=== PATIENT | female | born 1930 | race African-American/Black ===

== ENCOUNTER 2018-05-15 17:55 | Inpatient (IN) | payer MEDICARE, OTHER ==
[2018-05-15] MEDS ORDERED: PANTOPRAZOLE 40 MG/10 ML VIAL IVP STA (18:26)
[2018-05-15] MEDS ORDERED: SODIUM CHLORIDE 0.9% 1,000 ML IV STA (18:26)
--- NOTE | 2018-05-15 19:38 | CT ---
EXAMINATION TYPE: CT brain wo con DATE OF EXAM: 05/15/2018 COMPARISON: 02/19/2015 HISTORY: 87-year-old female with pain, confusion, altered mental status TECHNIQUE: Examination was done in axial plane without intravenous contrast. Coronal and sagittal r econstructions performed. CT DLP: 947.3 mGycm Automated exposure control for dose reduction was used. FINDINGS: There is no evidence of acute intracranial hemorrhage, acute ischemic changes, mass, mass-effect, or extra-axial fluid collection. There is no effacement of cerebral sulci or basal subarachnoid cister ns. There is no midline shift. Mckeon-white matter distinction is preserved. Similar moderate to advanced supratentorial volume loss. There is nemu-[id number] hydrocephalus, sim ilar to prior exam likely in part due to central cerebral atrophy. Mild mucosal thickening right ethmoid air cells. Mastoid air cells well pneumatized. Orbits and globe s are intact. IMPRESSION: 1. Stable cnek-[id number] ventriculomegaly likely ex vacuo enlargement from the degree of cerebral a trophy. Correlate to exclude a component of NPH. 2. No acute intracranial abnormality seen.
--- NOTE | 2018-05-15 19:47 | XR ---
EXAMINATION TYPE: XR chest 2V DATE OF EXAM: 05/15/2018 COMPARISON: 05/17/2014 HISTORY: 87-year-old female with pain TECHNIQUE: AP and lateral views FINDINGS: The heart is normal size. Aorta and pulmonary vasculature within normal limits. Stable mild diffuse i nterstitial prominence. No consolidation or pleural effusion. IMPRESSION: Chronic changes without acute cardiopulmonary process.
[2018-05-15 19:55] LABS: Calcium 11.2 mg/dL (8.4-10.2); Potassium 4.2 mmol/L (3.5-5.1); Total Bilirubin 0.6 mg/dL (0.2-1.3); Total Protein 7.1 g/dL (6.3-8.2)
[2018-05-15 19:56] LABS: HCT 42.3 % (34.0-46.0); HGB 13.5 gm/dL (11.4-16.0); Hypochromasia Slight; MCHC 31.9 g/dL (31.0-37.0); Mean Platelet Volume 11.5; Platelet Count 445 k/uL (150-450); RDW 15.4 % (11.5-15.5)
[2018-05-15 20:00] LABS: WBC 38.5 k/uL (3.8-10.6)
[2018-05-15] MEDS ORDERED: PIPERACILLIN-TAZOBACTAM 3.375 GM in DEXTROSE/WATER 1 50ML.BAG IVPB STA (20:00)
[2018-05-15 20:07] LABS: Creatine Kinase MB 1.9 ng/mL (0.0-2.4); Troponin I 0.075 ng/mL (0.000-0.034)
[2018-05-15 20:14] LABS: Lymphocytes # (M) 2.31 k/uL (1.0-4.8); Monocytes # (M) 3.08 k/uL (0-1.0); Neutrophils % (M) 87 %; Nucleated Red Blood Cells 0 /100 WBC (0-0); Total Cells Counted 200
--- NOTE | 2018-05-15 20:24 | ED ---
General Adult HPI - General Chief complaint: GI Bleed Stated complaint: GI Bleed Time Seen by Provider: 05/15/18 18:00 Source: EMS Mode of arrival: EMS - History of Present Illness Initial comments: 77 years O female comes in the [facility] with her 2 sons, both of her son said that has not been feeling well for about 40 week now home they said they noticed coffee-ground emesis this morning and now she has been sleeping more and there are times when she wakes up and talk to them but they noticed a clear change in mentation she'll history of strokes she has not walked for about a year and a half now prior to that she was used to walk with a walker review of system is through the family and initially patient was unresponsive to the sternal rub but later she woke up she answered my questions and they seemed appropriate and she fell asleep while talking to me - Related Data Home Medications Medication Instructions Recorded Confirmed Atenolol [Tenormin] 50 mg PO DAILY 05/17/14 05/15/18 Insulin Aspart [NovoLOG Flexpen] 6 unit SQ AC-BRKFST 06/18/14 05/15/18 Aspirin 81 mg PO DAILY 08/21/14 05/15/18 Docusate [Colace] 100 mg PO DAILY 08/21/14 05/15/18 Insulin Aspart [Novolog Flexpen] 8 unit SQ AC-BID 08/21/14 05/15/18 Atorvastatin [Lipitor] 40 mg PO HS 08/22/14 05/15/18 Cholecalciferol [Vitamin D3] 1,000 unit PO DAILY@1200 08/22/14 05/15/18 Gabapentin [Neurontin] 100 mg PO HS 08/22/14 05/15/18 Insulin Detemir [Levemir Flexpen] 30 unit SQ HS 08/22/14 05/15/18 buPROPion HCL [Wellbutrin] 75 mg PO DAILY 02/19/15 05/15/18 Allopurinol [Zyloprim] 100 mg PO DAILY 05/15/18 05/15/18 Memantine HCl [Namenda] 5 mg PO BID 05/15/18 05/15/18 Mirtazapine [Remeron] 15 mg PO HS 05/15/18 05/15/18 Potassium Chloride [Klor-Con 10] 10 meq PO DAILY 05/15/18 05/15/18 Sodium Bicarbonate Tab 650 mg PO DAILY 05/15/18 05/15/18 Allergies Allergy/AdvReac Type Severity Reaction Status Date / Time metformin Allergy Unknown Verified 02/19/15 22:33 Review of Systems ROS Statement: Those systems with pertinent positive or pertinent negative responses have been documented in the HPI. ROS Other: All systems not noted in ROS Statement are negative. Past Medical History Past Medical History: CVA/TIA, Diabetes Mellitus, GERD/Reflux, Hyperlipidemia, Hypertension Additional Past Medical History / Comment(s): vomiting after meals, slight memory loss-signs own consents, wheelchair, History of Any Multi-Drug Resistant Organisms: None Reported Past Surgical History: Unable to Obtain, Coronary Bypass/CABG Additional Past Surgical History / Comment(s): no other surgical hx at [facility] Past Anesthesia/Blood Transfusion Reactions: Unable to Obtain Additional Past Anesthesia/Blood Transfusion Reaction / Comment(s): no hx at [facility] Past Psychological History: Depression Smoking Status: Never smoker Past Alcohol Use History: None Reported Past Drug Use History: None Reported General Exam - General Exam Comments Initial Comments: General: The patient is unresponsive on arrival to the sternal rub than 10 minutes later she woke up and she had a meaningful conversation and then she fell asleep while talking to me family said she is a DO NOT RESUSCITATE Skin: Skin is warm and dry and no rashes or lesions are noted. Eye: Pupils are equal, round and reactive to light, extra-ocular movements are intact; there is normal conjunctiva bilaterally. Ears, nose, mouth and throat: There are moist mucous membranes and no oral lesions. Neck: The neck is supple, there is no tenderness or JVD. Cardiovascular: There is a regular rate and rhythm. No murmur, rub or gallop is appreciated. Respiratory: To auscultation bilateral, no wheezing no rhonchi no distress respiratory sandra noticed Gastrointestinal: Soft, non-distended, non-tender abdomen without masses or organomegaly noted. There is no rebound or guarding present. Bowel sounds are unremarkable. Back: There is no tenderness to palpation in the midline. There is no obvious deformity. Musculoskeletal: Normal ROM, no tenderness, There is no pedal edema. There is no calf tenderness or swelling. No cords were appreciated. Neurological: CN II-XII intact, Cranial nerves III through XII are intact. There are no obvious motor or sensory deficits. Coordination appears grossly intact. Speech is normal. Psychiatric: Cooperative, appropriate mood & affect, normal judgment. Course Vital Signs 05/15/18 05/15/18 05/15/18 17:59 20:00 20:28 Pulse Rate 89 71 74 Respiratory 16 18 18 Rate Blood Pressure 104/54 105/54 111/59 O2 Sat by Pulse 94 L 99 99 Oximetry She is a DO NOT RESUSCITATE family confirmed that she be admitted to Dr. Lerma service will consult Dr. Ramírez was discussed with the family and they agree with that plan Medical Decision Making - Lab Data Result diagrams: 05/15/18 18:59 05/15/18 18:59 Lab Results 05/15/18 05/15/18 05/15/18 Range/Units 18:57 18:59 18:59 WBC 38.5 H* (3.8-10.6) k/uL RBC 4.50 (3.80-5.40) m/uL Hgb 13.5 (11.4-16.0) gm/dL Hct 42.3 (34.0-46.0) % MCV 94.0 (80.0-100.0) fL MCH 30.0 (25.0-35.0) pg MCHC 31.9 (31.0-37.0) g/dL RDW 15.4 (11.5-15.5) % Plt Count 445 (150-450) k/uL Neutrophils % (Manual) 87 % Lymphocytes % (Manual) 6 % Monocytes % (Manual) 8 % Neutrophils # (Manual) 33.50 H (1.3-7.7) k/uL Lymphocytes # (Manual) 2.31 (1.0-4.8) k/uL Monocytes # (Manual) 3.08 H (0-1.0) k/uL Nucleated RBCs 0 (0-0) /100 WBC Manual Slide Review Performed RBC Morphology Normal Hypochromasia Slight APTT (22.0-30.0) sec Sodium (137-145) mmol/L Potassium (3.5-5.1) mmol/L Chloride (98-107) mmol/L Carbon Dioxide (22-30) mmol/L Anion Gap mmol/L BUN (7-17) mg/dL Creatinine (0.52-1.04) mg/dL Est GFR (CKD-EPI)AfAm (>60 ml/min/1.73 sqM) Est GFR (CKD-EPI)NonAf (>60 ml/min/1.73 sqM) Glucose (74-99) mg/dL Plasma Lactic Acid Justin (0.7-2.0) mmol/L Calcium (8.4-10.2) mg/dL Total Bilirubin (0.2-1.3) mg/dL AST (14-36) U/L ALT (9-52) U/L Alkaline Phosphatase (38-126) U/L Total Creatine Kinase 72 (30-135) U/L CK-MB (CK-2) 1.9 (0.0-2.4) ng/mL CK-MB (CK-2) Rel Index 2.6 Troponin I 0.075 H* (0.000-0.034) ng/mL Total Protein (6.3-8.2) g/dL Albumin (3.5-5.0) g/dL Urine Color Urine Appearance (Clear) Urine pH (5.0-8.0) Urine Protein (Negative) Urine Glucose (UA) (Negative) Urine Ketones (Negative) Urine Blood (Negative) Urine Nitrite (Negative) Urine Bilirubin (Negative) Urine Urobilinogen (<2.0) mg/dL Ur Leukocyte Esterase (Negative) Urine RBC (0-5) /hpf Urine WBC (0-5) /hpf Urine WBC Clumps (None) /hpf Ur Squamous Epith Cells (0-4) /hpf Urine Bacteria (None) /hpf Urine Mucus (None) /hpf Urine Yeast (Budding) (None) /hpf Stool Occult Blood (Negative) Blood Type B Positive Blood Type Recheck No Antibody Screen NEGATIVE Spec Expiration Date 05/18/2018235605/15/18 05/15/18 05/15/18 Range/Units 18:59 18:59 18:59 WBC (3.8-10.6) k/uL RBC (3.80-5.40) m/uL Hgb (11.4-16.0) gm/dL Hct (34.0-46.0) % MCV (80.0-100.0) fL MCH (25.0-35.0) pg MCHC (31.0-37.0) g/dL RDW (11.5-15.5) % Plt Count (150-450) k/uL Neutrophils % (Manual) % Lymphocytes % (Manual) % Monocytes % (Manual) % Neutrophils # (Manual) (1.3-7.7) k/uL Lymphocytes # (Manual) (1.0-4.8) k/uL Monocytes # (Manual) (0-1.0) k/uL Nucleated RBCs (0-0) /100 WBC Manual Slide Review RBC Morphology Hypochromasia APTT 20.6 L (22.0-30.0) sec Sodium 152 H (137-145) mmol/L Potassium 4.2 (3.5-5.1) mmol/L Chloride 117 H (98-107) mmol/L Carbon Dioxide 17 L (22-30) mmol/L Anion Gap 18 mmol/L BUN 119 H* (7-17) mg/dL Creatinine 5.70 H* (0.52-1.04) mg/dL Est GFR (CKD-EPI)AfAm 7 (>60 ml/min/1.73 sqM) Est GFR (CKD-EPI)NonAf 6 (>60 ml/min/1.73 sqM) Glucose 176 H (74-99) mg/dL Plasma Lactic Acid Justin 1.3 (0.7-2.0) mmol/L Calcium 11.2 H (8.4-10.2) mg/dL Total Bilirubin 0.6 (0.2-1.3) mg/dL AST 17 (14-36) U/L ALT 19 (9-52) U/L Alkaline Phosphatase 86 (38-126) U/L Total Creatine Kinase (30-135) U/L CK-MB (CK-2) (0.0-2.4) ng/mL CK-MB (CK-2) Rel Index Troponin I (0.000-0.034) ng/mL Total Protein 7.1 (6.3-8.2) g/dL Albumin 4.0 (3.5-5.0) g/dL Urine Color Urine Appearance (Clear) Urine pH (5.0-8.0) Urine Protein (Negative) Urine Glucose (UA) (Negative) Urine Ketones (Negative) Urine Blood (Negative) Urine Nitrite (Negative) Urine Bilirubin (Negative) Urine Urobilinogen (<2.0) mg/dL Ur Leukocyte Esterase (Negative) Urine RBC (0-5) /hpf Urine WBC (0-5) /hpf Urine WBC Clumps (None) /hpf Ur Squamous Epith Cells (0-4) /hpf Urine Bacteria (None) /hpf Urine Mucus (None) /hpf Urine Yeast (Budding) (None) /hpf Stool Occult Blood (Negative) Blood Type Blood Type Recheck Antibody Screen Spec Expiration Date 05/15/18 05/15/18 Range/Units 19:58 19:58 WBC (3.8-10.6) k/uL RBC (3.80-5.40) m/uL Hgb (11.4-16.0) gm/dL Hct (34.0-46.0) % MCV (80.0-100.0) fL MCH (25.0-35.0) pg MCHC (31.0-37.0) g/dL RDW (11.5-15.5) % Plt Count (150-450) k/uL Neutrophils % (Manual) % Lymphocytes % (Manual) % Monocytes % (Manual) % Neutrophils # (Manual) (1.3-7.7) k/uL Lymphocytes # (Manual) (1.0-4.8) k/uL Monocytes # (Manual) (0-1.0) k/uL Nucleated RBCs (0-0) /100 WBC Manual Slide Review RBC Morphology Hypochromasia APTT (22.0-30.0) sec Sodium (137-145) mmol/L Potassium (3.5-5.1) mmol/L Chloride (98-107) mmol/L Carbon Dioxide (22-30) mmol/L Anion Gap mmol/L BUN (7-17) mg/dL Creatinine (0.52-1.04) mg/dL Est GFR (CKD-EPI)AfAm (>60 ml/min/1.73 sqM) Est GFR (CKD-EPI)NonAf (>60 ml/min/1.73 sqM) Glucose (74-99) mg/dL Plasma Lactic Acid Justin (0.7-2.0) mmol/L Calcium (8.4-10.2) mg/dL Total Bilirubin (0.2-1.3) mg/dL AST (14-36) U/L ALT (9-52) U/L Alkaline Phosphatase (38-126) U/L Total Creatine Kinase (30-135) U/L CK-MB (CK-2) (0.0-2.4) ng/mL CK-MB (CK-2) Rel Index Troponin I (0.000-0.034) ng/mL Total Protein (6.3-8.2) g/dL Albumin (3.5-5.0) g/dL Urine Color Dark Brown Urine Appearance Turbid H (Clear) Urine pH 5.5 (5.0-8.0) Urine Protein 2+ H (Negative) Urine Glucose (UA) Negative (Negative) Urine Ketones Negative (Negative) Urine Blood Small H (Negative) Urine Nitrite Negative (Negative) Urine Bilirubin Negative (Negative) Urine Urobilinogen <2.0 (<2.0) mg/dL Ur Leukocyte Esterase Large H (Negative) Urine RBC >182 H (0-5) /hpf Urine WBC >182 H (0-5) /hpf Urine WBC Clumps Many H (None) /hpf Ur Squamous Epith Cells 138 H (0-4) /hpf Urine Bacteria Many H (None) /hpf Urine Mucus Many H (None) /hpf Urine Yeast (Budding) Many H (None) /hpf Stool Occult Blood Negative (Negative) Blood Type Blood Type Recheck Antibody Screen Spec Expiration Date Critical Care Time Total Critical Care Time: 45 Critical Care Time: He was under unresponsive on arrival then numb she woke up she had a meaningful conversation in the meantime we start giving the labs back. For the imaging head CT is unremarkable no acute changes family was very clear about her DO NOT RESUSCITATE her son is the DURABLE POWER OF DATASTAGE DEVELOPER and he is in the room present now white count was quite elevated 38.5 with a significant left shift creatinine is 5.[address] is normal chest x-rays unremarkable occult blood was negative impression is currently coffee-ground emesis sepsis kidney failure and also noticed a troponin was elevated she'll be admitted to Dr. Lerma service and will consult's consult nephrology as well as cardiology considering any acute kidney failure and elevated troponin Disposition Clinical Impression: UTI (urinary tract infection), Sepsis, Altered mental status, Elevated troponin Disposition: ADMITTED IP TO THIS HOSP Condition: Good Referrals: Sander Perez MD [Primary Care Provider] - 1-2 days
[2018-05-15 20:36] LABS: Appearance,Urine Turbid (Clear); Bacteria,Urine Many /hpf; Bilirubin,Urine Negative (Negative); Blood,Urine Small (Negative); Budding Yeast,Urine Many /hpf; Glucose,Urine (UA) Negative (Negative); Ketones,Urine Negative (Negative); Leukocyte Esterase,Urine Large (Negative); Mucus,Urine Many /hpf; Nitrite,Urine Negative (Negative); PH, Urine 5.5 (5.0-8.0); Protein,Urine 2+ (Negative); RBC,Urine >182 /hpf (0-5); Squamous Epithelial Cell,Urine 138 /hpf (0-4); Urobilinogen,Urine <2.0 mg/dL (<2.0); WBC,Urine >182 /hpf (0-5)
[2018-05-15 20:40] LABS: Color,Urine Dark Brown
[2018-05-15] MEDS ORDERED: ACETAMINOPHEN TAB 325 MG TAB PO PRN (20:42)
[2018-05-15] MEDS ORDERED: NALOXONE 0.4 MG/ML 1 ML VIAL IV PRN (20:42)
[2018-05-15] MEDS ORDERED: ONDANSETRON 4 MG/2 ML VIAL IVP PRN (20:42)
[2018-05-15] MEDS ORDERED: SODIUM CHLORIDE 0.9% 1,000 ML IV SCH (20:45)
[2018-05-15] MEDS: ATORVASTATIN 40 MG TAB PO SCH (22:29)
[2018-05-15] MEDS: MEMANTINE 5 MG TAB PO SCH (22:29)
[2018-05-15] MEDS: GABAPENTIN 100 MG CAP PO SCH (22:29)
[2018-05-15] MEDS: MIRTAZAPINE 15 MG TAB PO SCH (22:29)
[2018-05-15] MEDS ORDERED: LORazepam 2 MG/ML INJ IV PRN (22:37)
[2018-05-15] MEDS ORDERED: 1: MVI, ADULT NO.4 WITH VIT K 10 ML, THIAMINE 100 MG, FOLIC ACID 1 MG, POTASSIUM CHLORID IV SCH ×5 (23:30)
--- NOTE | 2018-05-15 23:36 | HP ---
HISTORY AND PHYSICAL DATE OF SERVICE: 05/15/2018 CHIEF COMPLAINT: GI bleed. HISTORY OF PRESENT ILLNESS: This 87-year-old woman with a past medical history of CVA, TIA, diabetes mellitus, GERD, hypertension, hyperlipidemia is a resident of [facility] on the [place] under Dr. Perez, was noted to have some GI bleed. The patient was not feeling well over the past couple of days. The patient refused to eat anything yesterday and the patient had coffee-ground emesis and the patient was drowsy, confused and the patient was taken to [facility] and admitted for evaluation treatment at this time. Currently the patient unable to give any coherent history. The white count is found to be elevated at 38.5 hand and creatinine was found to be 5.70 and the UA showed significant evidence of UTI and troponin indeterminate at 0.075. Patient admitted for further evaluation and treatment. As mentioned earlier, patient is unable to give any coherent history, mostly taken in my discussion with the staff and as well as review of the chart and discussion with the ER physician. PAST MEDICAL HISTORY: History of CVA, TIA, diabetes mellitus, GERD, hypertension, hyperlipidemia, history of vomiting, hysterectomy. MEDICATIONS PRIOR TO ADMISSION: Home medications are: 1. Wellbutrin 75 mg p.o. daily. 2. Sodium bicarb 650 b.i.d. 3. Klor-Con 10 mg p.o. daily. 4. Remeron 50 mg p.o. q.h.s. 5. Namenda 5 mg p.o. b.i.d. 6. Novolin FlexPen 30 units subcu q.h.s. and NovoLog FlexPen 18 units subcu b.i.d. and 6units with breakfast. 7. Neurontin 100 mg q.h.s. 8. Colace 100 mg p.o. daily. 9. Vitamin D3 1000 daily. 10.Lipitor 40 mg q.h.s. 11.Tenormin 50 mg p.o. daily. 12.Aspirin 81 mg p.o. daily. 13.Zyloprim 100 mg p.o. daily. ALLERGIES: METFORMIN. FAMILY HISTORY, SOCIAL HISTORY, REVIEW OF SYSTEMS: Could not be taken because of the patient's change in mental status. According to the chart, there is no history of smoking previously. PHYSICAL EXAM: Patient is stuporous, unresponsive. Pulse 104, blood pressure 97/49, respirations 18, temperature 98.2, pulse ox 99% on 2L. HEENT: Conjunctivae normal. Oral mucosa is dry. NECK: No jugular venous distention. No carotid bruits. No lymph node enlargement. The neck veins are collapsed. CARDIOVASCULAR: S1, S2 muffled. Ejection systolic murmur. No S3, S4. RESPIRATORY: Breath sounds diminished in the bases. A few scattered rhonchi. No crackles. ABDOMEN: Soft, nontender. No mass palpable. LEGS: No edema. No swelling. NERVOUS SYSTEM: The patient has abnormal movements; otherwise, the patient stuporous. SKIN: No ulcer, rash or bleeding. LYMPHATIC: No lymphadenopathy in neck or axillae. JOINTS: No active deforming arthropathy. LABS: WBC 38.5, neutrophils are 33.5 and sodium 152, and CO2 77. Creatinine is 5.70. UA noted. ASSESSMENT: 1. Urinary tract infection with sepsis with a change in mental status, acute metabolic encephalopathy secondary to sepsis. 2. Acute renal failure, possibly prerenal acute renal failure, acute tubular necrosis. 3. Severe hypernatremia with dehydration. 4. Possible upper gastrointestinal bleeding and hematemesis. 5. History of cerebrovascular accident, transient ischemic attack. 6. Diabetes mellitus type 2. 7. Gastroesophageal reflux disease. 8. Hypertension. 9. Hyperlipidemia. 10.Hysterectomy. 11.Possible underlying dementia. RECOMMENDATIONS AND DISCUSSION: In this 87-year-old woman who presented with multiple complex medical issues, at this time we will monitor the patient closely, continue the current medication, continue symptomatic treatment. Otherwise, at this time I would recommend cautious IV fluids and broad-spectrum IV antibiotics. Zosyn has been initiated. I would recommend cultures, cardiology and nephrology consultations. A brain CT scan done in the ER showed mild to moderate ventriculomegaly with cerebral atrophy. A chest x-ray was done which showed chronic changes without any acute pulmonary process. The EKG was monitored in the ER, showed sinus tachycardia with ST-T changes. The overall prognosis is guarded because of multiple complex medical issues. Will await the response of the antibiotics. I would also recommend Dr. Johnson for infectious disease. Further recommendations to follow. See orders for further details. A copy of this dictation will be forwarded to Dr. Perez, who is the primary physician. Will monitor also replace IV fluids with banana bag and perform Accu-Cheks. MMKIML / IJN: [id number] /
[2018-05-16] MEDS: PIPERACILLIN-TAZOBACTAM 3.375 GM in DEXTROSE/WATER 1 50ML.BAG IVPB SCH ×3 (04:39→20:38)
[2018-05-16 06:39] LABS: Glucose,Whole Blood 141 mg/dL (75-99)
[2018-05-16] MEDS: INSULIN ASPART 100 UNIT/ML 1 ML 10 ML VIAL SQ SCH ×3 (06:42→17:19)
[2018-05-16 07:02] LABS: Basophils # (A) 0.1 k/uL (0-0.2); Basophils % (A) 0 %; Eosinophils # (A) 0.2 k/uL (0-0.7); Eosinophils % (A) 1 %; HGB 10.8 gm/dL (11.4-16.0); Hypochromasia Slight; Lymphocytes # (A) 2.2 k/uL (1.0-4.8); Lymphocytes % (A) 7 %; MCHC 30.9 g/dL (31.0-37.0); Mean Platelet Volume 11.8; Monocytes # (A) 1.2 k/uL (0-1.0); Monocytes % (A) 4 %; Neutrophils # (A) 28.4 k/uL (1.3-7.7); Neutrophils % (A) 88 %; Platelet Count 334 k/uL (150-450); RBC 3.72 m/uL (3.80-5.40); RDW 14.7 % (11.5-15.5)
[2018-05-16 07:06] LABS: WBC 32.3 k/uL (3.8-10.6)
[2018-05-16 07:23] LABS: Calcium 10.1 mg/dL (8.4-10.2); Potassium 4.8 mmol/L (3.5-5.1); Total Bilirubin 0.7 mg/dL (0.2-1.3); Total Protein 5.7 g/dL (6.3-8.2)
--- NOTE | 2018-05-16 10:05 | P.NPCON ---
History of Present Illness - Reason for Consult acute renal failure, hypernatremia - History of Present Illness Reason for consultation: Acute kidney injury and hyponatremia History of present illness: Patient is a 87-year-old female seen in renal consultation for acute kidney injury and electrolyte imbalance. Unclear as to what her baseline renal function is. Creatinine in August 2015 was 1.68. This admission her creatinine was elevated at 5.7 as 5.6 today. She is currently receiving normal saline at 75 mL an hour. Her sodium level is 153 and a bicarb level is down to 13 this morning. Patient presented to the hospital with altered mental status and coffee ground emesis. She was also weaker than usual. Patient's currently resting in bed and is not a very reliable historian. She does open her eyes to verbal commands but does not respond to verbal commands. Her UA suggestive of UTI. Her white count is also noted to be elevated at 32.3. She is maintained on empiric antibiotics. Oral intake is poor. She does have history of diabetes mellitus and hypertension. I don't see any diuretics or NSAIDs and her home medications. Vital signs are stable. General: The patient appeared well nourished and normally developed. HEENT: Head exam is unremarkable. Neck is without jugular venous distension. LUNGS: Lungs are clear to auscultation and percussion. Breath sounds decreased. HEART: Rate and Rhythm are regular. First and second heart sounds normal. No murmurs, rubs or gallops. ABDOMEN: Abdominal exam reveals normal bowel sounds. Non-tender and non- distended. No evidence of peritonitis. EXTREMITITES: No clubbing, cyanosis, or edema. Past Medical History Past Medical History: CVA/TIA, Diabetes Mellitus, GERD/Reflux, Hyperlipidemia, Hypertension Additional Past Medical History / Comment(s): vomiting after meals(occasionally) , slight memory loss-signs own consents, wheelchair, History of Any Multi-Drug Resistant Organisms: None Reported Past Surgical History: Hysterectomy Additional Past Surgical History / Comment(s): no other surgical hx at [facility] Past Anesthesia/Blood Transfusion Reactions: No Reported Reaction Additional Past Anesthesia/Blood Transfusion Reaction / Comment(s): no hx at [facility] Past Psychological History: Depression Smoking Status: Never smoker Past Alcohol Use History: None Reported Past Drug Use History: None Reported Medications and Allergies Home Medications Medication Instructions Recorded Confirmed Type Atenolol [Tenormin] 50 mg PO DAILY 06/25/14 06/23/18 History Insulin Aspart [NovoLOG Flexpen] 6 unit SQ AC-BRKFST 06/18/14 05/15/18 History Aspirin 81 mg PO DAILY 08/21/14 05/15/18 History Docusate [Colace] 100 mg PO DAILY 08/21/14 05/15/18 History Insulin Aspart [Novolog Flexpen] 8 unit SQ AC-BID 08/21/14 05/15/18 History Atorvastatin [Lipitor] 40 mg PO HS 08/22/14 05/15/18 History Cholecalciferol [Vitamin D3] 1,000 unit PO DAILY@1200 08/22/14 05/15/18 History Gabapentin [Neurontin] 100 mg PO HS 08/22/14 05/15/18 History Insulin Detemir [Levemir Flexpen] 30 unit SQ HS 08/22/14 05/15/18 History buPROPion HCL [Wellbutrin] 75 mg PO DAILY 02/19/15 05/15/18 History Allopurinol [Zyloprim] 100 mg PO DAILY 05/15/18 05/15/18 History Memantine HCl [Namenda] 5 mg PO BID 05/15/18 05/15/18 History Mirtazapine [Remeron] 15 mg PO HS 05/15/18 05/15/18 History Potassium Chloride [Klor-Con 10] 10 meq PO DAILY 05/15/18 05/15/18 History Sodium Bicarbonate Tab 650 mg PO DAILY 05/15/18 05/15/18 History Allergies Allergy/AdvReac Type Severity Reaction Status Date / Time metformin Allergy Unknown Verified 02/19/15 22:33 Physical Exam Vitals: Vital Signs Temp Pulse Pulse Resp BP BP Pulse Ox 05/16/18 07:52 98.1 F 102 H 18 97/63 95 05/16/18 04:00 97.3 F L 102 H 16 83/48 97 05/16/18 00:00 98.0 F 97 18 100/42 99 05/15/18 21:32 98.1 F 104 H 19 97/49 99 05/15/18 21:00 97.8 F 102 H 20 104/56 98 05/15/18 20:28 74 18 111/59 99 05/15/18 20:00 71 18 105/54 99 05/15/18 17:59 89 16 104/54 94 L Intake and Output 05/15/18 05/16/18 05/16/18 22:59 06:59 14:59 Intake Total 50 600 Balance 50 600 Intake: Intake, IV Titration 50 600 Amount Mvi, Adult No.4 with Vit 600 K 10 ml Thiamine 100 mg Folic Acid 1 mg Potassium Chloride 10 meq In Sodium Chloride 0.9% 1, 000 ml @ 75 mls/hr IV .BY DURATION [facility] Rx#: [id number] Piperacillin-Tazobactam 3 50 .375 gm In Dextrose/Water 1 50ml.bag @ 12.5 mls/hr IVPB Q8H [facility] Rx#: [id number] Other: Voiding Method Incontinent Diaper Weight 55 kg 53 kg Results - Lab Results Most recent lab results Calcium 10.1 mg/dL (8.4-10.2) 05/16/18 06:21 05/16/18 06:21 05/16/18 06:21 Assessment and Plan Plan: Assessment: 1. Nonoliguric acute kidney injury mostly prerenal secondary to severe intravascular volume depletion from poor oral intake and hypotension. Creatinine was 5.7 on admission and is 5.6 today. 2. Hypovolemic hypernatremia secondary to lack of oral water intake. Sodium level 153 today. 3. Anion gap metabolic acidosis secondary to acute kidney injury and IV fluids. 4. Diabetes mellitus. 5. UTI maintained on IV Zosyn at this time. 6. Rule out chronic kidney disease. Unclear as to her baseline renal function is. Creatinine was 1.68 in August 2015. Plan: I will change IV fluids to D5W with 2 A of sodium bicarbonate to be run at 100 mL an hour. Repeat electrolytes this evening. Avoid nephrotoxic agents and hypotensive episodes. Follow-up cultures. Encouraged oral intake as able to tolerate. No urgent need for renal placement therapy at this time. Thank you for the consultation. I will continue to follow the patient with you during her hospital stay.
[2018-05-16] MEDS: ASPIRIN 81 MG PO SCH (11:38)
[2018-05-16] MEDS: MEMANTINE 5 MG TAB PO SCH ×2 (11:39→19:48)
[2018-05-16] MEDS: buPROPion 75 MG TAB PO SCH (11:39)
[2018-05-16] MEDS: ATENOLOL 50 MG TAB PO SCH (11:39)
[2018-05-16] MEDS: DOCUSATE 100 MG CAP PO SCH (11:39)
[2018-05-16] MEDS: SODIUM BICARBONATE TAB 650 MG TAB PO SCH (11:40)
[2018-05-16] MEDS: POTASSIUM CHLORIDE ER 10 MEQ TAB.ER.PRT PO SCH (11:40)
[2018-05-16] MEDS: HEPARIN SODIUM,PORCINE 5,000 UNIT/ML 1 ML VIAL SQ SCH ×2 (11:41→20:03)
[2018-05-16] MEDS: PANTOPRAZOLE 40 MG/10 ML VIAL IVP SCH (11:41)
[2018-05-16] MEDS: DEXTROSE 5% IN WATER 1,000 ML with SODIUM BICARB (1 MEQ/ML) 100 ML IV SCH ×2 (11:41→20:39)
[2018-05-16] MEDS: CHOLECALCIFEROL 1,000 UNIT TAB PO SCH (11:42)
[2018-05-16 12:20] LABS: Glucose,Whole Blood 163 mg/dL (75-99)
[2018-05-16 17:01] LABS: Glucose,Whole Blood 194 mg/dL (75-99)
[2018-05-16 19:34] LABS: Calcium 9.8 mg/dL (8.4-10.2); Potassium 4.5 mmol/L (3.5-5.1)
[2018-05-16] MEDS: GABAPENTIN 100 MG CAP PO SCH (19:47)
[2018-05-16] MEDS: ATORVASTATIN 40 MG TAB PO SCH (19:47)
[2018-05-16] MEDS: MIRTAZAPINE 15 MG TAB PO SCH (19:48)
--- NOTE | 2018-05-16 19:49 | CONS ---
CONSULTATION DATE OF SERVICE: 05/16/2018. REASON FOR CONSULTATION: Urinary tract infection and antibiotic recommendation. HISTORY OF PRESENT ILLNESS: The patient is 87-year-old female who was brought into the ER at [facility] last night with a chief complaint of coffee-ground emesis this morning. Apparently the patient has not been eating or drinking for more than a week now and has been getting weaker and weaker. She has not been talking or responding to the family about a week and a half. There was no clear history of any fever or chills but no history of any abdominal pain that the patient had been complaining of. With these symptoms the patient was evaluated by the ER physician and the patient did have a chest x-ray that was reported chronic change without acute cardiopulmonary process. No fever was recorded. The patient did have a white count of 38.5 with repeat of 32.5 and she was noticed to have an acute renal failure with a creatinine of 5.70. Troponin was elevated. Urine was positive. The patient has been started on Zosyn and admitted to the hospital and Infectious Disease was consulted for further recommendation regarding antibiotic therapy. All of this information has been obtained from review of the chart and talking to the son as the patient herself is not able to provide any reliable history. REVIEW OF SYSTEMS: Could not be reliably obtained because of underlying medical condition. The positive points have been mentioned in HPI. PAST MEDICAL HISTORY: Significant for CVA, TIA, diabetes mellitus, gastroesophageal reflux disease, hyperlipidemia, hypertension. PAST SURGICAL HISTORY: Hysterectomy. SOCIAL HISTORY: No history of smoking, drinking or drug use. FAMILY HISTORY: No pertinent findings noticed. ALLERGIES: To METFORMIN. MEDICATIONS: The patient is currently on Zosyn 3.375 g q.8, she is on K-Dur, Protonix, Zofran, Narcan, Remeron, Namenda, Ativan, NovoLog, heparin, Neurontin, Colace, vitamin D3, Wellbutrin, Lipitor, Tenormin, aspirin, Tylenol. EXAMINATION: Blood pressure is 95/60 with a pulse of 96, temperature of 98.1. She is 97% on room air. General description is an elderly female lying in bed in no distress. No tachypnea or accessory muscle of respiration use. HEENT: Shows pallor, no scleral icterus. Oral mucosa is dry. No pharyngeal erythema or thrush. NECK: Trachea central, No thyromegaly. LUNGS: Unlabored breathing. Clear to auscultation anteriorly. No wheeze or crackle. HEART: S1, S2. Regular rate and rhythm. ABDOMEN: Soft, no guarding. No rigidity was noted. No tenderness. EXTREMITIES: No edema feet. SKIN EXAMINATION: No rash or mass palpable. NEUROLOGICAL: The patient remains to be lethargic, unresponsive. Neuro exam could not be completed. LABS: Hemoglobin is 10.8, white count 32.3. Admission white count was 38,000 with BUN of 119, creatinine 5.60, 125. Sodium is 153. Urine is positive. Blood culture currently pending. DIAGNOSTIC IMPRESSION AND PLAN: Patient admitted to the hospital with mental status changes which is likely multifactorial in this patient who did have evidence of significant metabolic abnormality with elevated BUN and creatinine +/- component of urinary tract infection likely from enteric gram-negative pathogen. The patient did have a component of a coffee-grounds emesis. Underlying abdominal source is not entirely excluded as the patient is currently unable to provide reliable history. No significant tenderness was noted on abdominal examination. PLAN: 1. We will keep the patient on Zosyn 3.375 g however distribute to in view of creatinine clearance. 2. Gentle IV fluid. 3. If the patient has persistent elevated white count and the urine culture came back negative and the patient overall oral intake improves, will obtain a CT of abdomen and pelvis to make sure no evidence of any intraabdominal process. Thank you for this consultation. Will follow this patient along with you. MMODL / IJN: [id number] /
[2018-05-16 21:10] LABS: Glucose,Whole Blood 280 mg/dL (75-99)
--- NOTE | 2018-05-16 21:40 | PN ---
PROGRESS NOTE DATE OF SERVICE: 05/16/2018 This 87 -year-old woman admitted to the hospital with diminished p.o. output and GI bleed had significantly acute renal failure and hyponatremia as well as dehydration. Fluids changed to D5 water with sodium bicarb by nephrology today. The patient is closely monitored. The patient is stuporous. The sodium is very slightly improved yesterday but unable to give a coherent history. Patient had some vague bizarre abnormal movements at this time. PAST MEDICAL HISTORY: Reviewed. REVIEW OF SYMPTOMS: Could not be taken at this time. CURRENT MEDICATIONS: Reviewed and include: 1. Tylenol 650 q.6h p.r.n. 2. Aspirin 81 mg. 3. Tenormin 50 mg. 4. Lipitor 40 mg. 5. Wellbutrin 75 mg. 6. Vitamin D3. 7. Colace 100 mg. 8. Neurontin 100 mg q.h.s. 9. Heparin 5000 subcu b.i.d. 10.NovoLog. 11.Ativan 0.5 mg p.r.n. 12.Namenda. 13.Remeron 50 mg q.h.s. 14.Narcan. 15.Protonix. 16.Zosyn 3.375 IV q.8. 17.Sodium bicarb 650 p.o. daily. PHYSICAL EXAM: Patient is conscious, stuporous. Pulse is 96, blood pressure 1112/60, respirations 16, temperature 98.7. Pulse ox 94% on 2 L. HEENT is conjunctivae normal. Oral mucosa moist. Neck is no jugular venous distention. No carotid bruit. No lymph node enlargement. Oral mucosa dry. Cardiovascular system: S1, S2 muffled. No S3, no S4. RESPIRATORY: Breath sounds diminished in the bases. A few scattered rhonchi and crackles. ABDOMEN: Soft, nontender. No mass palpable. Legs: No edema. No swelling. NERVOUS SYSTEM: Higher functions as mentioned earlier. Diffusely weak, minimal movements noted. SKIN: No ulcer, rash, bleeding. LABS: At this time shows WBC 32.3, hemoglobin is 10.8, sodium 138, and chloride 125 and creatinine 5.60. Troponin 0.85. The cultures are pending at this time. ASSESSMENT: 1. Urinary tract infection with sepsis, present on admission with change in mental status and acute metabolic encephalopathy secondary to sepsis. 2. Acute renal failure possibly prerenal acute renal failure with acute tubular necrosis. 3. Severe hypernatremia with dehydration. 4. Possible upper gastrointestinal bleeding with hematemesis. 5. History of cerebrovascular accident, transient ischemic attack. 6. Diabetes type 2. 7. Gastroesophageal reflux disease. 8. Hypertension. 9. Hyperlipidemia. 10.History of hysterectomy. 11.Possible underlying dementia. 12.FULL CODE with instructions. RECOMMENDATION AND DISCUSSION: Recommend to continue current medications, management and symptomatic treatment. Continue with antibiotics. Continue with cautious IV fluids. Monitor lytes. Monitor labs. Monitor creatinine closely. Follow with Nephrology, Infectious Disease and Cardiology. Otherwise prognosis guarded, which I discussed at length with the family, two sons at bedside who understand and agree and further recommendations to follow. BOBL / LISSYN: [id number] /
[2018-05-17] MEDS: DEXTROSE 5% IN WATER 1,000 ML with SODIUM BICARB (1 MEQ/ML) 100 ML IV SCH ×2 (03:09→17:32)
[2018-05-17] MEDS: PIPERACILLIN-TAZOBACTAM 3.375 GM in DEXTROSE/WATER 1 50ML.BAG IVPB SCH ×3 (04:38→20:22)
[2018-05-17 05:51] LABS: Glucose,Whole Blood 228 mg/dL (75-99)
[2018-05-17] MEDS: INSULIN ASPART 100 UNIT/ML 1 ML 10 ML VIAL SQ SCH ×7 (06:30→20:22)
[2018-05-17 07:33] LABS: Calcium 9.8 mg/dL (8.4-10.2); Potassium 3.9 mmol/L (3.5-5.1)
[2018-05-17 09:04] LABS: Basophils # (A) 0.1 k/uL (0-0.2); Basophils % (A) 0 %; Eosinophils # (A) 0.3 k/uL (0-0.7); Eosinophils % (A) 1 %; HCT 33.1 % (34.0-46.0); HGB 10.4 gm/dL (11.4-16.0); Hypochromasia Moderate; Lymphocytes # (A) 2.2 k/uL (1.0-4.8); Lymphocytes % (A) 9 %; MCH 30.1 pg (25.0-35.0); MCHC 31.3 g/dL (31.0-37.0); Mean Platelet Volume 11.9; Monocytes # (A) 0.9 k/uL (0-1.0); Monocytes % (A) 4 %; Neutrophils # (A) 20.9 k/uL (1.3-7.7); Neutrophils % (A) 85 %; Platelet Count 325 k/uL (150-450); RBC 3.45 m/uL (3.80-5.40); RDW 15.2 % (11.5-15.5); WBC 24.5 k/uL (3.8-10.6)
[2018-05-17] MEDS: PANTOPRAZOLE 40 MG/10 ML VIAL IVP SCH (09:08)
[2018-05-17] MEDS: DOCUSATE 100 MG CAP PO SCH (09:09)
[2018-05-17] MEDS: buPROPion 75 MG TAB PO SCH (09:09)
[2018-05-17] MEDS: HEPARIN SODIUM,PORCINE 5,000 UNIT/ML 1 ML VIAL SQ SCH ×2 (09:09→20:23)
[2018-05-17] MEDS: MEMANTINE 5 MG TAB PO SCH ×2 (09:09→20:22)
[2018-05-17] MEDS: POTASSIUM CHLORIDE ER 10 MEQ TAB.ER.PRT PO SCH (09:10)
[2018-05-17] MEDS: ATENOLOL 50 MG TAB PO SCH (09:10)
[2018-05-17] MEDS: ASPIRIN 81 MG PO SCH (09:10)
[2018-05-17] MEDS: SODIUM BICARBONATE TAB 650 MG TAB PO SCH (09:10)
[2018-05-17 10:59] LABS: Large Platelets Present; Poikilocytosis (M) Present
[2018-05-17 11:20] LABS: Hemoglobin A1C 5.9 % (4.0-6.0)
[2018-05-17 12:22] LABS: Glucose,Whole Blood 80 mg/dL (75-99)
[2018-05-17] MEDS: CHOLECALCIFEROL 1,000 UNIT TAB PO SCH (12:53)
--- NOTE | 2018-05-17 15:17 | PN ---
PROGRESS NOTE Patient is seen for followup for acute kidney injury, hyponatremia and metabolic acidosis. Patient's acidosis has improved. Her renal function is still quite impaired with creatinine at 6.0. Serum sodium is at 164 today. Patient opens her eyes but is not able to talk much or communicate. PHYSICAL EXAMINATION: Blood pressure is 100/66, heart rate 97 per minute, she is afebrile. Examination of the heart, S1, S2. Examination of the lungs, bilateral breath sounds are heard. Abdomen is soft, nontender. Examination of the lower extremities shows no edema. PATTERN MAKER PROGRAMER exam cannot be performed. LAB: Show sodium 154, potassium 3.9, BUN 113, serum creatinine 6.05, hemoglobin 10.4 g/dL. ASSESSMENT: 1. Hyponatremia, secondary to free water synthesis, serum sodium remains elevated. We will change the IV fluids to D5W. 2. Acute kidney injury. Serum creatinine also remains elevated at about 5.96 mg/dL. Previous creatinine was 1.68 in August of 2015. Patient is incontinent and in a diaper. She is maintained on IV fluids. I do not have an ultrasound of the abdomen. .. 3. Metabolic acidosis secondary to renal failure, currently improved on IV bicarb. 4. Urinary tract infection. Urine culture is currently pending. Patient is maintained on empiric antibiotics. 5. Hypertension, blood pressure currently on the lower side. I will hold off on the Atenolol. 6. Generalized debility. 7. Altered mentation secondary to renal failure and hypernatremia. PLAN: Change IV fluids to D5W. Check an ultrasound of the kidneys, check bladder scan. Rule out urine retention. Overall prognosis is guarded. If renal function does not improve, we may need to consider renal replacement therapy. However, I do not believe patient is a good candidate for dialysis. This will need to be discussed as she is a FULL CODE. I am not sure of her baseline mental status and functional status. MMODL / IJN: [id number] /
--- NOTE | 2018-05-17 16:32 | CONS ---
CONSULTATION CHIEF COMPLAINT: Elevated troponin. 87-year-old lady with history of CVA, TIA, diabetes, hypertension, dyslipidemia, GERD, who is currently resident of [facility], is admitted to hospital with GI bleed. She appears confused, drowsy, has renal failure with a creatinine of 5.7 and elevated white cell count at 38.5. Her troponins were mildly elevated, but there is no definite pattern to them. The patient is a poor historian, but denies any chest pain. PAST MEDICAL HISTORY: Significant for CVA, TIA, diabetes, hypertension, dyslipidemia. MEDICATIONS: At home include Wellbutrin, potassium, sodium bicarb, Remeron, Namenda, insulin, Neurontin, Colace, vitamin, Lipitor, Tenormin, aspirin and Zyloprim. ALLERGIC: To METFORMIN. FAMILY HISTORY: Negative for premature coronary artery disease. SOCIAL HISTORY: Negative for current smoking, EtOH abuse, or drug abuse. REVIEW OF SYSTEMS: I am unable to obtain from the patient. PHYSICAL EXAM: Patient is comfortable at rest. Vital signs are stable. There is no jugular venous distention. Carotid upstroke is diminished. Chest exam reveals good air entry bilaterally. Heart exam reveals first and second heart sounds and a systolic murmur at the apex. Abdomen is soft. Exam of extremities reveal trace edema. LABS: Labs show white cell count of 24, hemoglobin is 10.4, creatinine is elevated at 6. Sodium is 154, potassium is 3.9. Troponin is elevated, but is in the reid zone without any clear pattern to it at 0.07 and 0.08. EKG shows sinus tachycardia with nonspecific ST-T wave changes. ASSESSMENT: 1. Elevated troponin probably related to underlying renal failure. 2. Anemia with possible GI blood loss. PLAN: From cardiac standpoint, she does not require further evaluation at this time. The patient is on aspirin, beta blockers, statins, which will be continued. I will obtain a 2D echo to assess her LV function and wall motion. Thank you for allowing us to participate in the care of this pleasant lady. MMODL / IJN: [id number] /
[2018-05-17 17:30] LABS: Glucose,Whole Blood 125 mg/dL (75-99)
[2018-05-17] MEDS: DEXTROSE 5% IN WATER 1,000 ML IV SCH (17:32)
--- NOTE | 2018-05-17 18:14 | PN ---
PROGRESS NOTE DATE OF SERVICE: 05/17/2018 This 87-year-old woman who was admitted with UTI with sepsis also had renal failure. The patient is being closely monitored. Patient has significant hypernatremia. Cardiology is also following the patient closely as well as Infectious Disease. The patient is on broad-spectrum IV antibiotics. The patient is barely responsive at this time. Cultures are pending at this time. Past medical history reviewed. Review of systems could not be taken. CURRENT MEDICATIONS: Current medications are reviewed and include: 1. Tylenol 650 q.6 p.r.n. 2. Aspirin 81 mg p.o. daily. 3. Tenormin 50 mg p.o. daily. 4. Lipitor 40 mg p.o. at bedtime. 5. Wellbutrin 75 mg p.o. daily. 6. Vitamin D3 1000 daily. 7. Dextrose water. 8. Colace 100 mg p.o. daily. 9. Neurontin 100 mg at bedtime. 10.Heparin 5000 units subcutaneously b.i.d. 11.NovoLog scale. 12.Ativan 0.5 mg q.6 p.r.n. 13.Namenda 5 mg p.o. b.i.d. 14.Remeron 15 mg at bedtime. 15.Narcan. 16.Zofran. 17.Protonix 40 mg IV daily. 18.Zosyn 3.375 IV q.8. 19.K-Dur 10 mEq p.o. daily. 20.Sodium bicarb 650 p.o. daily. PHYSICAL EXAMINATION: Patient is stuporous. Pulse 98, blood pressure 91/48, respiration 16, temperature 96.2, pulse ox 100% on 2 L. HEENT: Conjunctivae normal. Oral mucosa moist. NECK: No jugular venous distention. No carotid bruit. No lymph node enlargement. CARDIOVASCULAR SYSTEM: S1, S2 muffled. RESPIRATORY SYSTEM: Breath sounds diminished at the bases. A few scattered rhonchi. ABDOMEN: Soft, non-tender. NERVOUS SYSTEM: The patient is stuporous. LABS: WBC 24.5, hemoglobin 10.4, sodium 154. ASSESSMENT: 1. Urinary tract infection with sepsis, present on admission, with change in mental status and acute metabolic encephalopathy secondary to sepsis. 2. Acute renal failure, possibly prerenal acute renal failure with acute tubular necrosis. 3. Severe hypernatremia with dehydration. 4. Hyperchloremia. 5. Possible upper gastrointestinal bleeding with hematemesis. 6. History of cerebrovascular accident, transient ischemic attack. 7. Diabetes mellitus, type 2. 8. Gastroesophageal reflux disease. 9. Hypertension. 10.Hyperlipidemia. 11.History of hysterectomy. 12.Possible underlying dementia. 13.FULL CODE with instructions: RECOMMENDATIONS AND DISCUSSION: At this time I recommend to continue current medication, continue with the monitoring, symptomatic treatment. I recommend continued IV fluids. Monitor creatinine. Monitor chloride. Monitor sodium. Empiric antibiotics. Multiple consultants are following the patient. Prognosis guarded. Further recommendations to follow. MMODL / IJN: [id number] /
--- NOTE | 2018-05-17 19:53 | US ---
EXAMINATION TYPE: US renals and bladder DATE OF EXAM: 05/17/2018 COMPARISON: NONE CLINICAL HISTORY: RF. Bladder infection. Exam limitations patient unable to roll. EXAM MEASUREMENTS: Right Kidney: 7.8 x 4.5 x 3.5 cm Left Kidney: 7.9 x 4.2 x 3.3 cm Right Kidney: No hydronephrosis or masses seen Left Kidney: No hydronephrosis or masses seen Bladder: Catheter in place. There is no evidence for hydronephrosis at this point in time. No nephrolithiasis is seen. No mercy s are identified. IMPRESSION: No evidence of renal stone or obstruction. There is a 2 cm area of somewhat exophytic lobulation on t he upper pole left kidney. It is not clear if this is a renal mass or due to lobulation. A limited CT scan of the abdomen would be helpful for further evaluation if clinically indicated.
[2018-05-17] MEDS: MIRTAZAPINE 15 MG TAB PO SCH (20:22)
[2018-05-17] MEDS: ATORVASTATIN 40 MG TAB PO SCH (20:22)
[2018-05-17] MEDS: GABAPENTIN 100 MG CAP PO SCH (20:22)
[2018-05-17 21:31] LABS: Glucose,Whole Blood 193 mg/dL (75-99)
--- NOTE | 2018-05-18 04:00 | PN ---
PROGRESS NOTE DATE OF SERVICE: 05/17/2018 REASON FOR FOLLOWUP: UTI. INTERVAL HISTORY: The patient is afebrile. The patient remains lethargic, unable to provide any history. Oral intake remains poor. No nausea or vomiting has been noticed or any diarrhea by the nursing staff. PHYSICAL EXAMINATION: Blood pressure 111/69 with a pulse of 93, temperature of 97.6. She is 100% on 2 L nasal cannula. General description is an elderly female lying in bed in no distress. RESPIRATORY SYSTEM: Unlabored breathing. Clear to auscultation anteriorly. HEART: S1, S2. Regular rate and rhythm. ABDOMEN: Soft. No tenderness. LABS: Hemoglobin is 10.4, white count 4.5 with a BUN of 113, creatinine 6.05. Cultures are currently pending. DIAGNOSTIC IMPRESSION AND PLAN: Patient admitted to hospital with mental status changes, multifactorial, with a possible component of a urinary tract infection with significantly positive UA. Cultures are currently pending. Patient is on Zosyn. That will be continued while watching her cultures. Family present at the bedside. Their questions were answered. MMODL / IJN: [id number] /
[2018-05-18 06:08] LABS: Glucose,Whole Blood 229 mg/dL (75-99)
[2018-05-18] MEDS: PIPERACILLIN-TAZOBACTAM 3.375 GM in DEXTROSE/WATER 1 50ML.BAG IVPB SCH ×3 (06:31→23:12)
[2018-05-18] MEDS: INSULIN ASPART 100 UNIT/ML 1 ML 10 ML VIAL SQ SCH ×7 (06:34→21:38)
[2018-05-18] MEDS: DEXTROSE 5% IN WATER 1,000 ML IV SCH ×3 (06:35→12:59)
[2018-05-18 06:38] LABS: Basophils % (A) 0 %; Eosinophils # (A) 0.3 k/uL (0-0.7); Eosinophils % (A) 2 %; HCT 29.9 % (34.0-46.0); HGB 9.4 gm/dL (11.4-16.0); Hypochromasia Moderate; Lymphocytes # (A) 1.8 k/uL (1.0-4.8); Lymphocytes % (A) 10 %; MCH 30.3 pg (25.0-35.0); MCHC 31.4 g/dL (31.0-37.0); MCV 96.5 fL (80.0-100.0); Mean Platelet Volume 10.8; Monocytes # (A) 0.6 k/uL (0-1.0); Monocytes % (A) 3 %; Neutrophils # (A) 14.9 k/uL (1.3-7.7); Neutrophils % (A) 84 %; Platelet Count 281 k/uL (150-450); RDW 15.6 % (11.5-15.5); WBC 17.8 k/uL (3.8-10.6)
[2018-05-18 06:47] LABS: Calcium 9.1 mg/dL (8.4-10.2); Potassium 3.4 mmol/L (3.5-5.1)
[2018-05-18] MEDS: ASPIRIN 81 MG PO SCH (07:59)
[2018-05-18] MEDS: ATENOLOL 50 MG TAB PO SCH (07:59)
[2018-05-18] MEDS: buPROPion 75 MG TAB PO SCH (07:59)
[2018-05-18] MEDS: MEMANTINE 5 MG TAB PO SCH ×2 (08:00→20:18)
[2018-05-18] MEDS: SODIUM BICARBONATE TAB 650 MG TAB PO SCH (08:00)
[2018-05-18] MEDS: POTASSIUM CHLORIDE ER 10 MEQ TAB.ER.PRT PO SCH (08:00)
[2018-05-18] MEDS: DOCUSATE 100 MG CAP PO SCH (08:00)
[2018-05-18] MEDS: HEPARIN SODIUM,PORCINE 5,000 UNIT/ML 1 ML VIAL SQ SCH ×2 (08:02→20:20)
[2018-05-18] MEDS: CHOLECALCIFEROL 1,000 UNIT TAB PO SCH (08:02)
[2018-05-18] MEDS: PANTOPRAZOLE 40 MG/10 ML VIAL IVP SCH (08:02)
[2018-05-18 08:11] LABS: Large Platelets Present; Poikilocytosis (M) Present
[2018-05-18] MEDS ORDERED: POTASSIUM CHLORIDE 10 MEQ in WATER FOR INJECTION 1 100ML.BAG IVPB ONE (08:46)
[2018-05-18] MEDS ORDERED: Potassium Replacement Protocol 1 EACH MISC MISCELLANE PRN (08:46)
[2018-05-18 11:40] LABS: Glucose,Whole Blood 149 mg/dL (75-99)
--- NOTE | 2018-05-18 12:03 | ECHOF ---
Referral Reason:abn trop MEASUREMENTS -------- HEIGHT: 170.2 cm WEIGHT: 51.7 kg BP: 87/40 IVSd: 1.1 cm (0.6 - 1.1) LVIDd: 3.7 cm (3.9 - 5.3) LVPWd: 1.2 cm (0.6 - 1.1) IVSs: 1.5 cm LVIDs: 3.0 cm LVPWs: 0.8 cm LA Diam: 2.8 cm (2.7 - 3.8) Ao Diam: 3.2 cm (2.0 - 3.7) AV Cusp: 1.9 cm (1.5 - 2.6) LA Diam: 3.5 cm (2.7 - 3.8) MV EXCURSION: 13.883 mm (> 18.000) MV EF SLOPE: 64 mm/s (70 - 150) EPSS: 0.3 cm MV E Balta: 0.62 m/s MV DecT: 216 ms MV A Balta: 0.96 m/s MV E/A Ratio: 0.65 RAP: 5.00 mmHg RVSP: 25.55 mmHg FINDINGS -------- Sinus rhythm. This was a technically adequate study. The left ventricular size is normal. There is borderline concentric left ventricular hypertrophy. Overall left ventricular systolic function is low-normal with, an EF between 50 - 55 %. The right ventricle is normal in size. The left atrial size is normal. The right atrial size is normal. There is mild aortic valve sclerosis. There is no evidence of aortic regurgitation. Mild mitral regurgitation is present. Mild tricuspid regurgitation present. There is no evidence of pulmonary hypertension. The right v entricular systolic pressure, as measured by Doppler, is 25.55mmHg. There is no pulmonic regurgitation present. The aortic root size is normal. Echo free space represents a pericardial fat pad. CONCLUSIONS -------- 1. The left ventricular size is normal. 2. There is borderline concentric left ventricular hypertrophy. 3. Overall left ventricular systolic function is low-normal with, an EF between 50 - 55 %. 4. The right ventricle is normal in size. 5. The left atrial size is normal. 6. The right atrial size is normal. 7. There is mild aortic valve sclerosis. 8. Mild mitral regurgitation is present. 9. Mild tricuspid regurgitation present. 10. There is no evidence of pulmonary hypertension. 11. The right ventricular systolic pressure, as measured by Doppler, is 25.55mmHg. 12. There is no pulmonic regurgitation present. 13. The aortic root size is normal. 14. Echo free space represents a pericardial fat pad. BRUSH MAKER: Chayo Jones RDCS
--- NOTE | 2018-05-18 15:23 | P.PN ---
Subjective Progress Note Date: 05/18/18 This is an 87-year-old female with history of CVA, diabetes, hypertension, hyperlipidemia, who was seen in consultation yesterday by Dr. Jonas. Consultation was requested because of abnormal troponin values. They felt that they were secondary to abnormal renal function. Seen and examined today, not responding to verbal stimuli. Echocardiogram with Doppler study was performed which revealed a normal left ventricular systolic function. Objective - Vital Signs Vital signs: Vital Signs Temp 97.8 F 05/18/18 11:20 Pulse 80 05/18/18 11:20 Resp 18 05/18/18 11:20 BP 87/49 05/18/18 11:20 Pulse Ox 100 05/18/18 11:20 Intake & Output 05/17/18 05/18/18 05/18/18 18:59 06:59 18:59 Intake Total 0 600 Output Total 825 Balance 0 -825 600 Weight 51.5 kg 52 kg Intake: Intake, IV Titration 600 Amount Dextrose 5% in Water 1, 450 000 ml @ 100 mls/hr IV . Q10H SAKSHI Rx#:[id number] Piperacillin-Tazobactam 3 50 .375 gm In Dextrose/Water 1 50ml.bag @ 12.5 mls/hr IVPB Q8H SAKSHI Rx#: [id number] Potassium Chloride 10 meq 100 In Water For Injection 1 100ml.bag @ 100 mls/hr IVPB ONCE ONE Rx#: [id number] Oral 0 Output: Urine 825 Other: Voiding Method Indwelling Catheter Indwelling Catheter Indwelling Catheter - Exam PHYSICAL EXAMINATION: GENERAL: 87-year-old female very sleepy difficult to arouse. HEENT: Head is atraumatic, normocephalic. Pupils equal, round. Sclera anicteric. Conjunctiva are clear. Mucous membranes of the mouth are moist. Neck is supple. There is no elevated jugular venous pressure.] bruit is heard. HEART EXAMINATION: Heart S1 S2 1 systolic murmur is heard. CHEST EXAMINATION: Lungs are clear to auscultation and precussion. No chest wall tenderness is noted on palpation or with deep breathing. ABDOMEN: Soft, nontender. Bowel sounds are heard. No organomegaly noted. EXTREMITIES: 2+ peripheral pulses with no evidence of peripheral edema and no calf tenderness noted. NEUROLOGIC [patient is sleepy, difficult to arouse. - Labs CBC & Chem 7: 05/18/18 06:09 05/18/18 14:05 Labs: Abnormal Lab Results - Last 24 Hours (Table) 05/17/18 05/17/18 05/18/18 Range/Units 17:11 21:29 06:07 WBC (3.8-10.6) k/uL RBC (3.80-5.40) m/uL Hgb (11.4-16.0) gm/dL Hct (34.0-46.0) % RDW (11.5-15.5) % Neutrophils # (1.3-7.7) k/uL Sodium (137-145) mmol/L Potassium (3.5-5.1) mmol/L Chloride (98-107) mmol/L Carbon Dioxide (22-30) mmol/L BUN (7-17) mg/dL Creatinine (0.52-1.04) mg/dL Glucose (74-99) mg/dL POC Glucose (mg/dL) 125 H 193 H 229 H (75-99) mg/dL 05/18/18 05/18/18 05/18/18 Range/Units 06:09 06:09 11:28 WBC 17.8 H (3.8-10.6) k/uL RBC 3.10 L (3.80-5.40) m/uL Hgb 9.4 L (11.4-16.0) gm/dL Hct 29.9 L (34.0-46.0) % RDW 15.6 H (11.5-15.5) % Neutrophils # 14.9 H (1.3-7.7) k/uL Sodium 150 H (137-145) mmol/L Potassium 3.4 L (3.5-5.1) mmol/L Chloride 117 H (98-107) mmol/L Carbon Dioxide 20 L (22-30) mmol/L BUN 102 H* (7-17) mg/dL Creatinine 5.79 H* (0.52-1.04) mg/dL Glucose 216 H (74-99) mg/dL POC Glucose (mg/dL) 149 H (75-99) mg/dL Microbiology - Last 24 Hours (Table) 05/15/18 19:58 Urine Culture - Preliminary Urine,Catheterized Assessment and Plan Plan: Assessment and plan #1 urinary tract infection with associated mental status changes #2 acute renal failure #3 severe hypernatremia with evidence of dehydration #4 upper GI bleeding and hematemesis #5 history of CVA #6 hypertension #7 diabetes #8 hyperlipidemia #9 possible underlying dementia #10 abnormal troponin, likely secondary to abnormal renal function and sepsis Plan From cardiology's perspective, we will continue current medical therapy which includes a baby aspirin, beta atilio, statin. Echocardiogram with Doppler study revealed normal left ventricular systolic function. From cardiology's perspective, we'll follow this patient with you now on an as-needed basis only, please call with any questions. DNP note has been reviewed, I agree with a documented findings and plan of care. Patient was seen and examined.
[2018-05-18 17:14] LABS: Glucose,Whole Blood 229 mg/dL (75-99)
--- NOTE | 2018-05-18 17:58 | PN ---
PROGRESS NOTE Patient is seen for followup for acute kidney injury and hypernatremia. The patient is a little bit more responsive today. Her IV fluids were switched to D5W. Her sodium was decreased slightly to 150 mEq/L. The patient has had good urine output. However, she had some urine retention and currently has an indwelling Villa catheter. She had 500 to 600 mL in the bladder prior to Villa catheter insertion. On examination today, blood pressure is 113/52, heart rate 90 per minute. Patient is afebrile. EXAMINATION OF THE HEART: S1, S2. EXAMINATION OF LUNGS: Bilateral breath sounds are heard. ABDOMEN: Soft, non-tender. Examination of lower extremities shows no evidence of edema. Patient did open her eyes and nod on asking simple questions. Labs show sodium 150, potassium 3.4, chloride 117, BUN 102, serum creatinine 5.79, hemoglobin 9.4 g/dL. ASSESSMENT: 1. Acute kidney injury, acute tubular necrosis, currently nonoliguric. Patient also had some degree of urine retention and volume depletion. She is maintained on IV fluids, which I will continue for now but change to D5W for the hypernatremia. I discussed with the patient's son, Crispin, regarding her advanced renal failure, and he is in agreement that the patient is not a good candidate for renal replacement therapy in case her renal function does not improve. He is not too keen on any kind of dialysis. 2. Hypernatremia associated with free water deficit, slowly improving. Continue with the D5W. 3. Urinary tract infection. Urine culture is still pending. Patient is maintained on antibiotics, which we can continue. 4. Altered mentation secondary to renal failure and electrolyte disorders, including hyponatremia. PLAN: Continue D5 water. Repeat labs in a.m. Discussed with son regarding possibility of renal replacement therapy. At this time he is not too keen on any kind of dialysis, which is appropriate given her advanced . MMODL / IJN: [id number] /
[2018-05-18] MEDS: MIRTAZAPINE 15 MG TAB PO SCH (20:18)
[2018-05-18] MEDS: GABAPENTIN 100 MG CAP PO SCH (20:18)
[2018-05-18] MEDS: ATORVASTATIN 40 MG TAB PO SCH (20:18)
[2018-05-18 21:09] LABS: Glucose,Whole Blood 129 mg/dL (75-99)
--- NOTE | 2018-05-18 22:47 | PN ---
PROGRESS NOTE DATE OF SERVICE: 05/18/2018 REASON FOR FOLLOWUP: Urinary tract infection. INTERVAL HISTORY: The patient is afebrile. She remains be less responsive, though she did have some response to the straight line press setter, per the family member. Oral intake remains poor. No nausea or vomiting. No diarrhea. PHYSICAL EXAMINATION: Blood pressure is 101/51 with a pulse of 91, temperature 99.8. She is 100% on 2 L nasal cannula. General description is an elderly female lying in bed in no distress. RESPIRATORY SYSTEM: Unlabored breathing. Clear to auscultation anteriorly. HEART: S1, S2. Regular rate and rhythm. ABDOMEN: Soft. No tenderness. LABS: Hemoglobin 9.4, white count down to 17.8. BUN of 102, creatinine 5.7, and cultures are currently pending. DIAGNOSTIC IMPRESSION AND PLAN: Patient admitted to hospital with mental status changes, multifactorial, with a component of possible urinary tract infection. Waiting for urine culture to finalize. Keep the patient on Zosyn. Family present at the bedside. Their questions were answered. MMODL / IJN: [id number] /
[2018-05-19 06:14] LABS: Glucose,Whole Blood 229 mg/dL (75-99)
[2018-05-19 07:51] LABS: Basophils % (A) 0 %; Eosinophils # (A) 0.2 k/uL (0-0.7); Eosinophils % (A) 1 %; HCT 29.8 % (34.0-46.0); HGB 9.1 gm/dL (11.4-16.0); Hypochromasia Slight; Lymphocytes # (A) 1.4 k/uL (1.0-4.8); Lymphocytes % (A) 8 %; MCH 28.7 pg (25.0-35.0); MCHC 30.6 g/dL (31.0-37.0); MCV 93.8 fL (80.0-100.0); Mean Platelet Volume 11.7; Monocytes # (A) 0.5 k/uL (0-1.0); Monocytes % (A) 3 %; Neutrophils # (A) 14.1 k/uL (1.3-7.7); Neutrophils % (A) 87 %; Platelet Count 297 k/uL (150-450); RBC 3.18 m/uL (3.80-5.40); RDW 15.5 % (11.5-15.5); WBC 16.2 k/uL (3.8-10.6)
[2018-05-19 08:11] LABS: Calcium 8.8 mg/dL (8.4-10.2); Potassium 3.7 mmol/L (3.5-5.1)
[2018-05-19] MEDS: INSULIN ASPART 100 UNIT/ML 1 ML 10 ML VIAL SQ SCH ×7 (11:02→21:14)
[2018-05-19] MEDS: ASPIRIN 81 MG PO SCH (11:02)
[2018-05-19] MEDS: buPROPion 75 MG TAB PO SCH (11:02)
[2018-05-19] MEDS: ATENOLOL 50 MG TAB PO SCH (11:02)
[2018-05-19] MEDS: DEXTROSE 5% IN WATER 1,000 ML IV SCH ×2 (11:02→18:00)
[2018-05-19] MEDS: SODIUM BICARBONATE TAB 650 MG TAB PO SCH (11:03)
[2018-05-19] MEDS: POTASSIUM CHLORIDE ER 10 MEQ TAB.ER.PRT PO SCH (11:03)
[2018-05-19] MEDS: MEMANTINE 5 MG TAB PO SCH ×2 (11:03→21:15)
[2018-05-19] MEDS: DOCUSATE 100 MG CAP PO SCH (11:03)
[2018-05-19 11:12] VITALS: RESP 18
[2018-05-19] MEDS: PANTOPRAZOLE 40 MG/10 ML VIAL IVP SCH (12:02)
[2018-05-19] MEDS: HEPARIN SODIUM,PORCINE 5,000 UNIT/ML 1 ML VIAL SQ SCH ×2 (12:02→21:13)
[2018-05-19 12:25] LABS: Glucose,Whole Blood 202 mg/dL (75-99)
[2018-05-19 12:52] LABS: Anisocytosis (M) Present; Large Platelets Present; Poikilocytosis (M) Present
[2018-05-19] MEDS: PIPERACILLIN-TAZOBACTAM 3.375 GM in DEXTROSE/WATER 1 50ML.BAG IVPB SCH ×2 (12:57→23:40)
[2018-05-19] MEDS: CHOLECALCIFEROL 1,000 UNIT TAB PO SCH (12:58)
--- NOTE | 2018-05-19 16:56 | P.PN ---
Subjective Progress Note Date: 05/18/18 Progress Note being dictated for Dr. Lerma Interval history: This is a 87-year-old female admitted with acute UTI with sepsis, acute metabolic encephalopathy, acute renal failure, severe hyponatremia , dehydration and multiple other medical issues. Maintained on IV fluid hydration with D5W, Zosyn. Creatinine down to 5.79. Sodium, chloride slowly improving, currently down to 150, 117. .Afebrile, WBC improving. Remains lethargic, opens eyes to stimulation. Creatinine currently 5.79. Telemetry sinus rhythm. NPO. Echo reporting preserved LV function, EF 50-55%. Objective - Vital Signs Vital signs: Vital Signs Temp 96.9 F L 05/18/18 15:30 Pulse 90 05/18/18 15:30 Resp 18 05/18/18 15:30 BP 113/52 05/18/18 15:30 Pulse Ox 100 05/18/18 15:30 Intake & Output 05/17/18 05/18/18 05/18/18 18:59 06:59 18:59 Intake Total 0 600 Output Total 825 Balance 0 -825 600 Weight 51.5 kg 52 kg Intake: Intake, IV Titration 600 Amount Dextrose 5% in Water 1, 450 000 ml @ 100 mls/hr IV . Q10H [facility] Rx#:[id number] Piperacillin-Tazobactam 3 50 .375 gm In Dextrose/Water 1 50ml.bag @ 12.5 mls/hr IVPB Q8H [facility] Rx#: [id number] Potassium Chloride 10 meq 100 In Water For Injection 1 100ml.bag @ 100 mls/hr IVPB ONCE ONE Rx#: [id number] Oral 0 Output: Urine 825 Other: Voiding Method Indwelling Catheter Indwelling Catheter Indwelling Catheter - Exam PHYSICAL EXAM: VITAL SIGNS: [As above] GENERAL: Lying in bed, lethargic, stuporous HEENT: Conjunctivae normal. eyes normal. Oral mucosa dry NECK: No JVD. No thyroid enlargement. No LNs CARDIOVASCULAR: S1, S2 muffled. Systolic murmur RESPIRATION: Breath sounds diminished in the bases. Scattered rhonchi, no crackles. No bronchial breathing. ABDOMEN: Soft, nontender . No guarding. no masses palpable.Bowel sounds heard. LEGS: No edema. no swelling NERVOUS SYSTEM: Unable to evaluate, patient lethargic, stuporous - Labs CBC & Chem 7: 05/19/18 05:56 05/19/18 05:56 Labs: Abnormal Lab Results - Last 24 Hours (Table) 05/17/18 05/18/18 05/18/18 Range/Units 21:29 06:07 06:09 WBC 17.8 H (3.8-10.6) k/uL RBC 3.10 L (3.80-5.40) m/uL Hgb 9.4 L (11.4-16.0) gm/dL Hct 29.9 L (34.0-46.0) % RDW 15.6 H (11.5-15.5) % Neutrophils # 14.9 H (1.3-7.7) k/uL Sodium (137-145) mmol/L Potassium (3.5-5.1) mmol/L Chloride (98-107) mmol/L Carbon Dioxide (22-30) mmol/L BUN (7-17) mg/dL Creatinine (0.52-1.04) mg/dL Glucose (74-99) mg/dL POC Glucose (mg/dL) 193 H 229 H (75-99) mg/dL 05/18/18 05/18/18 05/18/18 Range/Units 06:09 11:28 16:27 WBC (3.8-10.6) k/uL RBC (3.80-5.40) m/uL Hgb (11.4-16.0) gm/dL Hct (34.0-46.0) % RDW (11.5-15.5) % Neutrophils # (1.3-7.7) k/uL Sodium 150 H (137-145) mmol/L Potassium 3.4 L (3.5-5.1) mmol/L Chloride 117 H (98-107) mmol/L Carbon Dioxide 20 L (22-30) mmol/L BUN 102 H* (7-17) mg/dL Creatinine 5.79 H* (0.52-1.04) mg/dL Glucose 216 H (74-99) mg/dL POC Glucose (mg/dL) 149 H 229 H (75-99) mg/dL Microbiology - Last 24 Hours (Table) 05/15/18 19:58 Urine Culture - Preliminary Urine,Catheterized Assessment and Plan Assessment: 1. Acute UTI with sepsis, present on admission with change in mental status, acute metabolic encephalopathy secondary to sepsis 2. Acute renal failure, possibly prerenal with acute tubular necrosis 3. Severe hypernatremia with dehydration. 4. Hyperchloremia 5. Possible upper GI bleed with hematemesis 6. Diabetes mellitus type 2 7. History of CVA, TIA 8. Gastroesophageal reflux disease 9. Possible underlying dementia 10. Hypertension 11. Hyperlipidemia Plan: Continue on current medication regime ,monitoring and symptomatic treatment. Antibiotics as per infectious disease. Cultures pending. Maintain IV fluids of D5/ W as per nephrology. Family currently declining hemodialysis. Prognosis guarded given multiple complex medical issues. The impression and plan of care has been dictated as directed. : I performed a history and examination of this patient, discussed the same with the dictator. I agree with the dictator's note ,documented as a scribe. Any additional findings or plans will be noted.
--- NOTE | 2018-05-19 16:59 | P.PN ---
Subjective Progress Note Date: 05/19/18 Progress Note being dictated for Dr. Lerma Interval history: This is a 87-year-old female admitted with acute UTI with sepsis, acute metabolic encephalopathy, acute renal failure, severe hyponatremia , dehydration and multiple other medical issues. Maintained on IV fluid hydration with D5W, Zosyn. Creatinine down to 5.79. Sodium, chloride slowly improving, currently down to 150, 117. .Afebrile, WBC improving. Remains lethargic, opens eyes to stimulation. Creatinine currently 5.79. Telemetry sinus rhythm. NPO. Echo reporting preserved LV function, EF 50-55%. 05/19/2018 more alert today. Choking on pills. Speech therapy consulted. Maintained on antibiotics and IV fluid hydration with renal function and electrolytes continuing to improve. Objective - Vital Signs Vital signs: Vital Signs Temp 97.3 F L 05/18/18 23:56 Pulse 98 05/19/18 12:00 Resp 18 05/19/18 12:00 BP 108/54 05/19/18 12:00 Pulse Ox 99 05/19/18 12:00 Intake & Output 05/18/18 05/19/18 05/19/18 18:59 06:59 18:59 Intake Total 600 Output Total 700 700 Balance 600 -700 -700 Weight 52 kg Intake: Intake, IV Titration 600 Amount Dextrose 5% in Water 1, 450 000 ml @ 100 mls/hr IV . Q10H [facility] Rx#:[id number] Piperacillin-Tazobactam 3 50 .375 gm In Dextrose/Water 1 50ml.bag @ 12.5 mls/hr IVPB Q8H [facility] Rx#: [id number] Potassium Chloride 10 meq 100 In Water For Injection 1 100ml.bag @ 100 mls/hr IVPB ONCE ONE Rx#: [id number] Output: Urine 700 700 Other: Voiding Method Indwelling Catheter Indwelling Catheter Indwelling Catheter - Exam PHYSICAL EXAM: VITAL SIGNS: [As above] GENERAL: Sitting up in bed, alert, lethargic, confused HEENT: Conjunctivae normal. eyes normal. Oral mucosa dry NECK: No JVD. No thyroid enlargement. No LNs CARDIOVASCULAR: S1, S2 muffled. Systolic murmur RESPIRATION: Breath sounds diminished in the bases. Scattered rhonchi, no crackles. No bronchial breathing. ABDOMEN: Soft, nontender . No guarding. no masses palpable.Bowel sounds heard. LEGS: No edema. no swelling NERVOUS SYSTEM: Unable to evaluate, patient lethargic and confused - Labs CBC & Chem 7: 05/19/18 05:56 05/19/18 05:56 Labs: Abnormal Lab Results - Last 24 Hours (Table) 05/18/18 05/18/18 05/19/18 Range/Units 16:27 21:08 05:56 WBC 16.2 H (3.8-10.6) k/uL RBC 3.18 L (3.80-5.40) m/uL Hgb 9.1 L (11.4-16.0) gm/dL Hct 29.8 L (34.0-46.0) % MCHC 30.6 L (31.0-37.0) g/dL Neutrophils # 14.1 H (1.3-7.7) k/uL Chloride (98-107) mmol/L Carbon Dioxide (22-30) mmol/L BUN (7-17) mg/dL Creatinine (0.52-1.04) mg/dL Glucose (74-99) mg/dL POC Glucose (mg/dL) 229 H 129 H (75-99) mg/dL 05/19/18 05/19/18 05/19/18 Range/Units 05:56 06:11 12:05 WBC (3.8-10.6) k/uL RBC (3.80-5.40) m/uL Hgb (11.4-16.0) gm/dL Hct (34.0-46.0) % MCHC (31.0-37.0) g/dL Neutrophils # (1.3-7.7) k/uL Chloride 110 H (98-107) mmol/L Carbon Dioxide 20 L (22-30) mmol/L BUN 84 H* (7-17) mg/dL Creatinine 4.79 H (0.52-1.04) mg/dL Glucose 198 H (74-99) mg/dL POC Glucose (mg/dL) 229 H 202 H (75-99) mg/dL Assessment and Plan Assessment: 1. Acute UTI with sepsis, present on admission with change in mental status, acute metabolic encephalopathy secondary to sepsis 2. Acute renal failure, possibly prerenal with acute tubular necrosis 3. Severe hypernatremia with dehydration. 4. Hyperchloremia 5. Possible upper GI bleed with hematemesis 6. Diabetes mellitus type 2 7. History of CVA, TIA 8. Gastroesophageal reflux disease 9. Possible underlying dementia 10. Hypertension 11. Hyperlipidemia Plan: Continue on current medication regime ,monitoring and symptomatic treatment. Maintain IV fluids and antibiotics. Close monitoring of renal function and electrolytes with repeat labs ordered for a.m. Speech therapy consulted for swallow evaluation. Prognosis guarded given multiple complex medical issues. The impression and plan of care has been dictated as directed. : I performed a history and examination of this patient, discussed the same with the dictator. I agree with the dictator's note ,documented as a scribe. Any additional findings or plans will be noted.
[2018-05-19 17:49] LABS: Glucose,Whole Blood 189 mg/dL (75-99)
[2018-05-19] MEDS: POTASSIUM CHLORIDE 10 MEQ in WATER FOR INJECTION 1 100ML.BAG IVPB SCH ×2 (17:59→22:04)
[2018-05-19 20:35] LABS: Glucose,Whole Blood 139 mg/dL (75-99)
--- NOTE | 2018-05-19 21:08 | PN ---
PROGRESS NOTE Patient is seen for followup for acute kidney injury and hypernatremia. The patient is maintained on D5W. Her sodium is improving. It is down to 142 today. Creatinine has improved as well from 6 to 4.79 today. EXAMINATION: Patient is much more awake. She is answering questions very appropriately. She is not in any acute distress. Blood pressure is 108/54, heart rate 98 per minute. Patient is afebrile. HEART: S1, S2. LUNGS: Bilateral breath sounds are heard. Abdomen is soft, nontender. Lower extremities show no evidence of edema. 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 LABS: Show sodium 142, potassium 3.7, chloride 110, CO2 is 20, BUN 84, serum creatinine 4.79. Hemoglobin 9.1 g/dL. ASSESSMENT: 1. Acute kidney injury, nonoliguric renal failure secondary to hypovolemia and hypoperfusion, currently significantly improved. Will continue with IV hydration. The patient is not on any nephrotoxic medications. 2. Severe hypernatremia, now improving. I will change the IV fluids to half-normal saline and repeat labs in a.m. 3. Dyslipidemia, maintained on Lipitor. 4. Type 2 diabetes, currently on insulin. 5. History of dementia, maintained on Namenda. 6. Urinary tract infection, currently on empiric antibiotics. Urine culture is pending. PLAN: Change IV fluids to half-normal saline. Repeat labs in a.m. MMKIML / LISSYN: [id number] /
[2018-05-19] MEDS: SODIUM CHLORIDE 0.45% 1,000 ML IV SCH (21:13)
[2018-05-19] MEDS: GABAPENTIN 100 MG CAP PO SCH (21:15)
[2018-05-19] MEDS: MIRTAZAPINE 15 MG TAB PO SCH (21:15)
[2018-05-19] MEDS: ATORVASTATIN 40 MG TAB PO SCH (21:15)
--- NOTE | 2018-05-19 22:59 | PN ---
PROGRESS NOTE DATE OF SERVICE: 05/19/2018 REASON FOR FOLLOWUP: Urinary tract infection. INTERVAL HISTORY: The patient is afebrile. She is more awake and alert today. The patient denies having any chest pain or shortness of breath or cough. No abdominal pain or any diarrhea. PHYSICAL EXAMINATION: Blood pressure is 104/52 with a pulse of 98, temperature 98. She is 100% on room air. General description is an elderly female lying in bed in no distress. RESPIRATORY SYSTEM: Unlabored breathing. Clear to auscultation anteriorly. HEART: S1, S2. Regular rate and rhythm. ABDOMEN: Soft. No tenderness. LABS: White count down to 16.2 with a BUN of 84, creatinine 4.79. Cultures are pending. DIAGNOSTIC IMPRESSION AND PLAN: Patient admitted to hospital with mental status changes. Source is multifactorial. The patient did have significant dehydration plus/minus a component of UTI. While waiting for the urine culture to finalize, keep the patient on Zosyn. Continue with supportive care. MMODL / IJN: [id number] /
[2018-05-20 00:12] LABS: Glucose,Whole Blood 128 mg/dL (75-99)
[2018-05-20] MEDS ORDERED: ACETAMINOPHEN SUPPOSITORY 650 MG SUPP RECTAL PRN (00:15)
[2018-05-20 05:51] LABS: Basophils % (A) 0 %; Eosinophils # (A) 0.1 k/uL (0-0.7); Eosinophils % (A) 1 %; HCT 27.3 % (34.0-46.0); HGB 8.6 gm/dL (11.4-16.0); Lymphocytes # (A) 1.5 k/uL (1.0-4.8); Lymphocytes % (A) 11 %; MCH 28.7 pg (25.0-35.0); MCHC 31.4 g/dL (31.0-37.0); MCV 91.4 fL (80.0-100.0); Mean Platelet Volume 11.6; Monocytes # (A) 0.4 k/uL (0-1.0); Monocytes % (A) 3 %; Neutrophils # (A) 11.5 k/uL (1.3-7.7); Neutrophils % (A) 84 %; Platelet Count 250 k/uL (150-450); RBC 2.99 m/uL (3.80-5.40); RDW 15.2 % (11.5-15.5); WBC 13.7 k/uL (3.8-10.6)
[2018-05-20 06:13] LABS: Glucose,Whole Blood 121 mg/dL (75-99)
[2018-05-20 06:23] LABS: Potassium 3.8 mmol/L (3.5-5.1)
[2018-05-20] MEDS: INSULIN ASPART 100 UNIT/ML 1 ML 10 ML VIAL SQ SCH ×7 (06:35→22:21)
[2018-05-20] MEDS: buPROPion 75 MG TAB PO SCH (08:39)
[2018-05-20] MEDS: ASPIRIN 81 MG PO SCH (08:39)
[2018-05-20] MEDS: MEMANTINE 5 MG TAB PO SCH ×2 (08:41→22:21)
[2018-05-20] MEDS: SODIUM BICARBONATE TAB 650 MG TAB PO SCH (08:41)
[2018-05-20] MEDS: ATENOLOL 50 MG TAB PO SCH (08:41)
[2018-05-20] MEDS: DOCUSATE 100 MG CAP PO SCH (08:41)
[2018-05-20] MEDS: POTASSIUM CHLORIDE ER 10 MEQ TAB.ER.PRT PO SCH (08:41)
[2018-05-20] MEDS: HEPARIN SODIUM,PORCINE 5,000 UNIT/ML 1 ML VIAL SQ SCH ×3 (08:47→22:21)
[2018-05-20] MEDS: PANTOPRAZOLE 40 MG/10 ML VIAL IVP SCH ×2 (08:47→22:22)
--- NOTE | 2018-05-20 10:22 | P.CONS ---
History of Present Illness - Reason for Consult Consult date: 05/20/18 positive hemoccult Requesting physician: Luh Lerma - History of Present Illness 87-year-old female with UTI sepsis metabolic encephalopathy renal failure dehydration and reported coffee-ground emesis prior to admission. Patient is essentially nonverbal opens her eyes but does not hold a conversation speaks very little. History obtained from medical records and nursing staff. Apparently patient had a dark looking bowel movement the other day stool was sent for occult and was positive. Nursing has not witnessed overt bleeding such as hematemesis hematochezia or melena. Apparently family was asked if they wanted a PEG tube secondary to patient failing her swallow exam they declined. Discussion of possible hospice is being entertained. White count 13.7. Hemoglobin on admission 13.5 presently 8.6. MCV 91 platelet 250. INR not obtained APTT 20.6. C. diff negative. Unsure patient has had an EGD colonoscopy in the past. Unsure if she has a history of peptic ulcer disease. Receiving Protonix. Hospital medications reviewed receiving baby aspirin and no other antiplatelet or NSAID based medications. Review of Systems Obtained from medical records patient is nonverbal Constitutional: Denies fever, chills, sweats, weight gain, or loss. HEENT: Negative for migraines, blurred vision or loss, earaches, drainage, tinnitus, oral mucosal lesions, dysphagia, or odynophagia. CARDIAC: History of hypertension hyperlipidemia Negative for chest pain, arrhythmias, or palpitation. RESPIRATORY: Negative for shortness of breath, hemoptysis, cough, or sputum production. GI: See HPI for pertinent findings. : Negative for hematuria, urgency, frequency, polyuria, or dysuria. GYNc: Denies possibility of . Negative vaginal discharge. MUSCULOSKELETAL: Negative for muscle aches, swelling, arthritis, and arthralgias. NEUROLOGIC: History of CVA. ENDOCRINE: History of diabetes Negative for thyroid problems. SKIN: Negative for rash or itching. PSYCHIATRIC: History of depression Past Medical History Past Medical History: CVA/TIA, Diabetes Mellitus, GERD/Reflux, Hyperlipidemia, Hypertension Additional Past Medical History / Comment(s): vomiting after meals(occasionally) , slight memory loss-signs own consents, wheelchair, History of Any Multi-Drug Resistant Organisms: None Reported Past Surgical History: Hysterectomy Additional Past Surgical History / Comment(s): no other surgical hx at [facility] Past Anesthesia/Blood Transfusion Reactions: No Reported Reaction Additional Past Anesthesia/Blood Transfusion Reaction / Comm: no hx at [facility] Past Psychological History: Depression Smoking Status: Never smoker Past Alcohol Use History: None Reported Past Drug Use History: None Reported Medications and Allergies Home Medications Medication Instructions Recorded Confirmed Type Aspirin 81 mg PO DAILY 08/21/14 05/16/18 History Docusate [Colace] 100 mg PO BID 08/21/14 05/16/18 History Atorvastatin [Lipitor] 40 mg PO HS 08/22/14 05/16/18 History Cholecalciferol [Vitamin D3] 1,000 unit PO DAILY@1200 08/22/14 05/16/18 History Gabapentin [Neurontin] 100 mg PO HS 08/22/14 05/16/18 History Insulin Detemir [Levemir Flexpen] 15 unit SQ HS 08/22/14 05/16/18 History buPROPion HCL [Wellbutrin] 75 mg PO DAILY 02/19/15 05/16/18 History Allopurinol [Zyloprim] 100 mg PO DAILY 05/15/18 05/16/18 History Memantine HCl [Namenda] 5 mg PO BID 05/15/18 05/16/18 History Mirtazapine [Remeron] 15 mg PO HS 05/15/18 05/16/18 History Potassium Chloride [Klor-Con 10] 10 meq PO DAILY 05/15/18 05/16/18 History Sodium Bicarbonate Tab 650 mg PO DAILY 05/15/18 05/16/18 History Albuterol Nebulized [Ventolin 2.5 mg INHALATION RT-Q6H PRN 05/16/18 05/16/18 History Nebulized] Atenolol [Tenormin] 12.5 mg PO DAILY 05/16/18 05/16/18 History Ensure Clear 1 can PO TID-W/MEALS 05/16/18 05/16/18 History Insulin Lispro [humaLOG Kwikpen] 7 unit SQ TID 05/16/18 05/16/18 History Allergies Allergy/AdvReac Type Severity Reaction Status Date / Time metformin Allergy Unknown Verified 05/16/18 12:21 Physical Exam Vitals: Vital Signs Temp Pulse Resp BP Pulse Ox 05/20/18 04:00 99.8 F H 106 H 18 95/55 97 05/19/18 23:40 100.1 F H 109 H 18 95/53 97 05/19/18 20:50 99.8 F H 100 18 116/56 100 05/19/18 16:00 98 F 98 18 104/52 100 05/19/18 12:00 98 18 108/54 99 Intake and Output 05/19/18 05/20/18 05/20/18 22:59 06:59 14:59 Intake Total 600 Output Total 1100 400 Balance -500 -400 Intake: Intake, IV Titration 600 Amount Sodium Chloride 0.45% 1, 600 000 ml @ 75 mls/hr IV . [id number] [facility] Rx#:[id number] Output: Urine 1100 400 Other: Voiding Method Indwelling Catheter Indwelling Catheter # Bowel Movements 1 1 Weight 52 kg General appearance: The patient is awake nonverbal. HET: Head is normocephalic and atraumatic. Pupils are equal and reactive. Oropharynx is clear without lesions. Neck: Supple without lymphadenopathy. Trachea midline. Heart: S1 S2. Regular rate and rhythm. Lungs: No crackles or wheezes are heard. Abdomen: Soft, nontender, nondistended with bowel sounds. No peritoneal signs. No palpable organomegaly or masses. Extremities: Normal skin color and turgor. No cyanosis, rash, ulceration, clubbing, or edema. Radial and pedal pulses are 2/4 bilaterally. Neurological: No focal deficits. Strength and sensation are grossly intact. Results CBC & Chem 7: 05/20/18 05:29 05/20/18 05:29 Labs: Abnormal Lab Results - Last 24 Hours (Table) 05/19/18 05/19/18 05/19/18 Range/Units 05:56 05:56 12:05 WBC 16.2 H (3.8-10.6) k/uL RBC 3.18 L (3.80-5.40) m/uL Hgb 9.1 L (11.4-16.0) gm/dL Hct 29.8 L (34.0-46.0) % MCHC 30.6 L (31.0-37.0) g/dL Neutrophils # 14.1 H (1.3-7.7) k/uL Chloride 110 H (98-107) mmol/L Carbon Dioxide 20 L (22-30) mmol/L BUN 84 H* (7-17) mg/dL Creatinine 4.79 H (0.52-1.04) mg/dL Glucose 198 H (74-99) mg/dL POC Glucose (mg/dL) 202 H (75-99) mg/dL Stool Occult Blood (Negative) 05/19/18 05/19/18 05/20/18 Range/Units 17:38 20:33 00:02 WBC (3.8-10.6) k/uL RBC (3.80-5.40) m/uL Hgb (11.4-16.0) gm/dL Hct (34.0-46.0) % MCHC (31.0-37.0) g/dL Neutrophils # (1.3-7.7) k/uL Chloride (98-107) mmol/L Carbon Dioxide (22-30) mmol/L BUN (7-17) mg/dL Creatinine (0.52-1.04) mg/dL Glucose (74-99) mg/dL POC Glucose (mg/dL) 189 H 139 H 128 H (75-99) mg/dL Stool Occult Blood (Negative) 05/20/18 05/20/18 05/20/18 Range/Units 01:30 05:29 05:29 WBC 13.7 H (3.8-10.6) k/uL RBC 2.99 L (3.80-5.40) m/uL Hgb 8.6 L (11.4-16.0) gm/dL Hct 27.3 L (34.0-46.0) % MCHC (31.0-37.0) g/dL Neutrophils # 11.5 H (1.3-7.7) k/uL Chloride 114 H (98-107) mmol/L Carbon Dioxide 15 L (22-30) mmol/L BUN 71 H (7-17) mg/dL Creatinine 4.56 H (0.52-1.04) mg/dL Glucose 114 H (74-99) mg/dL POC Glucose (mg/dL) (75-99) mg/dL Stool Occult Blood Positive H (Negative) 05/20/18 Range/Units 06:10 WBC (3.8-10.6) k/uL RBC (3.80-5.40) m/uL Hgb (11.4-16.0) gm/dL Hct (34.0-46.0) % MCHC (31.0-37.0) g/dL Neutrophils # (1.3-7.7) k/uL Chloride (98-107) mmol/L Carbon Dioxide (22-30) mmol/L BUN (7-17) mg/dL Creatinine (0.52-1.04) mg/dL Glucose (74-99) mg/dL POC Glucose (mg/dL) 121 H (75-99) mg/dL Stool Occult Blood (Negative) Assessment and Plan (1) Anemia Narrative/Plan: 87-year-old female admitted with UTI sepsis metabolic encephalopathy renal failure reported coffee-ground emesis possible peptic ulcer disease possible gastritis possible esophagitis with a component of acute blood loss anemia. Current Visit: Yes Status: Acute Code(s): D64.9 - ANEMIA, UNSPECIFIED SNOMED Code(s): 604647348 (2) Coffee ground emesis Current Visit: Yes Status: Acute Code(s): K92.0 - HEMATEMESIS SNOMED Code( s): 943136819 (3) Altered mental status Current Visit: Yes Status: Acute Code(s): R41.82 - ALTERED MENTAL STATUS, UNSPECIFIED SNOMED Code(s): 923895499 (4) Sepsis Current Visit: Yes Status: Acute Code(s): A41.9 - SEPSIS, UNSPECIFIED ORGANISM SNOMED Code(s): 63820491 (5) UTI (urinary tract infection) Current Visit: Yes Status: Acute Code(s): N39.0 - URINARY TRACT INFECTION, SITE NOT SPECIFIED SNOMED Code(s): 35980338 Plan: 1. Case was discussed with attending nurse practitioner Yasir Abebe, recommend EGD evaluation if hemoglobin continues to drop or patient has recurrent coffee-ground emesis or rectal bleeding. Continue to monitor CBC closely. Continue GI prophylaxis twice daily. Presently nothing by mouth she failed her speech evaluation. We'll continue to follow. Thank you for this kind referral and the opportunity to participate in the care of your patient. This consultation was discussed with Dr. Casiano. The impression and plan of care have been directed as dictated.
[2018-05-20] MEDS: CHOLECALCIFEROL 1,000 UNIT TAB PO SCH (11:52)
[2018-05-20 11:58] LABS: Glucose,Whole Blood 119 mg/dL (75-99)
[2018-05-20] MEDS: SODIUM CHLORIDE 0.45% 1,000 ML IV SCH (11:58)
[2018-05-20] MEDS: PIPERACILLIN-TAZOBACTAM 3.375 GM in DEXTROSE/WATER 1 50ML.BAG IVPB SCH ×2 (11:59→23:37)
--- NOTE | 2018-05-20 14:54 | PN ---
PROGRESS NOTE Patient is seen for followup for acute kidney injury and severe hypernatremia. Serum sodium is improved to about 142. Serum creatinine is also improving, it is down to 4.56 from about 6.1 on initial admission. The patient has an indwelling [place] catheter. She has had good urine output of about 2.3 L over 24 hours. PHYSICAL EXAMINATION: On examination today, blood pressure is 105/49, heart rate 99 per minute. Patient is afebrile and temp of 99.8 early this morning. Examination of the heart: S1, S2. Examination of lungs: Bilateral breath sounds are heard. Abdomen is soft, nontender. Examination lower extremities shows no evidence of edema. SALES MANAGEMENT INTERN exam shows patient is much more awake. She answers simple questions. I do not see her moving her lower extremities. LABS: Sodium 142, potassium 3.8, chloride 114. CO2 17, BUN 71, serum creatinine 4.56. ASSESSMENT: 1. Acute kidney injury, most likely ATN currently slightly improved. Previous creatinine was 1.68 in 2016. We do not have any other labs available to me for comparison. I have discussed with the son and there are no plans for any renal replacement therapy. The patient does not need dialysis at this point. 2. Severe hypernatremia secondary to free water deficit, currently improved. Continue with half-normal saline for now. 3. Metabolic acidosis associated with renal failure. We can add oral sodium bicarb. 4. Anemia with no obvious bleeding. However, the stool for occult blood is positive. I will check iron studies and give iron if patient is insufficient. 5. Hypokalemia, status post replacement. 6. Urinary tract infection, maintained on antibiotics in the form of Zosyn. Patient is being followed by ID. PLAN: Continue half-normal saline, oral sodium bicarb and repeat labs in a.m. No plans for renal replacement therapy. MMODL / IJN: [id number] /
[2018-05-20 16:45] LABS: Glucose,Whole Blood 107 mg/dL (75-99)
--- NOTE | 2018-05-20 16:46 | P.PN ---
Subjective Progress Note Date: 05/20/18 Progress Note being dictated for Dr. Williamson Interval history: This is a 87-year-old female admitted with acute UTI with sepsis, acute metabolic encephalopathy, acute renal failure, severe hyponatremia , dehydration and multiple other medical issues. Maintained on IV fluid hydration with D5W, Zosyn. Creatinine down to 5.79. Sodium, chloride slowly improving, currently down to 150, 117. .Afebrile, WBC improving. Remains lethargic, opens eyes to stimulation. Creatinine currently 5.79. Telemetry sinus rhythm. NPO. Echo reporting preserved LV function, EF 50-55%. 05/19/2018 more alert today. Choking on pills. Speech therapy consulted. Maintained on antibiotics and IV fluid hydration with renal function and electrolytes continuing to improve. 05/20/2018 in fluctuating sensorium, less responsive today, nonverbal. No family at bedside. Evaluated by speech therapy yesterday for swallow evaluation.Made NPO secondary to reduced ability to follow directions, reduced cognition needed for safety. Staff reports family does not want PEG tube placement. Maintain IV fluids and antibiotics. Hemoglobin 8.6. No further coffee ground emesis, no rectal bleeding reported. Evaluated by GI, recommendations noted. ] Objective - Vital Signs Vital signs: Vital Signs Temp 97.1 F L 05/20/18 12:00 Pulse 95 05/20/18 12:00 Resp 18 05/20/18 12:00 BP 105/49 05/20/18 12:00 Pulse Ox 98 05/20/18 12:00 Intake & Output 05/19/18 05/20/18 05/20/18 18:59 06:59 18:59 Intake Total 600 575 Output Total 700 1500 Balance -700 -900 575 Weight 52 kg 52 kg 52 kg Intake: Intake, IV Titration 600 575 Amount Piperacillin-Tazobactam 3 50 .375 gm In Dextrose/Water 1 50ml.bag @ 12.5 mls/hr IVPB Q12H SAKSHI Rx#: [id number] Sodium Chloride 0.45% 1, 600 525 000 ml @ 75 mls/hr IV . [id number] SAKSHI Rx#:[id number] Output: Urine 700 1500 Other: Voiding Method Indwelling Catheter Indwelling Catheter Indwelling Catheter # Bowel Movements 1 - Exam PHYSICAL EXAM: VITAL SIGNS: [As above] GENERAL: Sitting up in bed, alert, lethargic, confused, nonverbal HEENT: Conjunctivae normal. eyes normal. Oral mucosa dry NECK: No JVD. No thyroid enlargement. No LNs CARDIOVASCULAR: S1, S2 muffled. Systolic murmur RESPIRATION: Breath sounds diminished in the bases. Scattered rhonchi, no crackles. No bronchial breathing. ABDOMEN: Soft, nontender . No guarding. no masses palpable.Bowel sounds heard. LEGS: No edema. no swelling NERVOUS SYSTEM: Unable to evaluate, patient lethargic and confused - Labs CBC & Chem 7: 05/20/18 05:29 05/20/18 05:29 Labs: Abnormal Lab Results - Last 24 Hours (Table) 05/19/18 05/19/18 05/20/18 Range/Units 17:38 20:33 00:02 WBC (3.8-10.6) k/uL RBC (3.80-5.40) m/uL Hgb (11.4-16.0) gm/dL Hct (34.0-46.0) % Neutrophils # (1.3-7.7) k/uL Chloride (98-107) mmol/L Carbon Dioxide (22-30) mmol/L BUN (7-17) mg/dL Creatinine (0.52-1.04) mg/dL Glucose (74-99) mg/dL POC Glucose (mg/dL) 189 H 139 H 128 H (75-99) mg/dL Stool Occult Blood (Negative) 05/20/18 05/20/18 05/20/18 Range/Units 01:30 05:29 05:29 WBC 13.7 H (3.8-10.6) k/uL RBC 2.99 L (3.80-5.40) m/uL Hgb 8.6 L (11.4-16.0) gm/dL Hct 27.3 L (34.0-46.0) % Neutrophils # 11.5 H (1.3-7.7) k/uL Chloride 114 H (98-107) mmol/L Carbon Dioxide 15 L (22-30) mmol/L BUN 71 H (7-17) mg/dL Creatinine 4.56 H (0.52-1.04) mg/dL Glucose 114 H (74-99) mg/dL POC Glucose (mg/dL) (75-99) mg/dL Stool Occult Blood Positive H (Negative) 05/20/18 05/20/18 Range/Units 06:10 11:51 WBC (3.8-10.6) k/uL RBC (3.80-5.40) m/uL Hgb (11.4-16.0) gm/dL Hct (34.0-46.0) % Neutrophils # (1.3-7.7) k/uL Chloride (98-107) mmol/L Carbon Dioxide (22-30) mmol/L BUN (7-17) mg/dL Creatinine (0.52-1.04) mg/dL Glucose (74-99) mg/dL POC Glucose (mg/dL) 121 H 119 H (75-99) mg/dL Stool Occult Blood (Negative) Assessment and Plan Assessment: 1. Acute UTI with sepsis, present on admission with change in mental status, acute metabolic encephalopathy secondary to sepsis 2. Acute renal failure, possibly prerenal with acute tubular necrosis 3. Severe hypernatremia with dehydration. 4. Hyperchloremia 5. Possible upper GI bleed with hematemesis 6. Diabetes mellitus type 2 7. History of CVA, TIA 8. Gastroesophageal reflux disease 9. Possible underlying dementia 10. Hypertension 11. Hyperlipidemia 12.NPO,secondary to reduced ability to follow directions, reduced cognition needed for safety. Please refer to speech therapy note for full details. Plan: Continue on current medication regime ,monitoring and symptomatic treatment. No family currently at bedside today. Will discuss comfort care option with family. Maintain IV fluids and antibiotics. Close monitoring of hemoglobin, renal function and electrolytes with repeat labs ordered for a.m. Prognosis guarded given multiple complex medical issues. The impression and plan of care has been dictated as directed. : I performed a history and examination of this patient, discussed the same with the dictator. I agree with the dictator's note ,documented as a scribe. Any additional findings or plans will be noted.
[2018-05-20 18:16] LABS: Glucose,Whole Blood 107 mg/dL (75-99)
[2018-05-20 19:14] LABS: Iron Saturation 20.3 (12.00-45.00)
[2018-05-20] MEDS: ATORVASTATIN 40 MG TAB PO SCH (22:20)
[2018-05-20] MEDS: GABAPENTIN 100 MG CAP PO SCH (22:20)
[2018-05-20] MEDS: MIRTAZAPINE 15 MG TAB PO SCH (22:21)
[2018-05-21 00:54] LABS: Glucose,Whole Blood 96 mg/dL (75-99)
[2018-05-21] MEDS: SODIUM CHLORIDE 0.45% 1,000 ML IV SCH ×2 (03:06→12:16)
[2018-05-21 06:07] LABS: Glucose,Whole Blood 93 mg/dL (75-99)
[2018-05-21] MEDS: INSULIN ASPART 100 UNIT/ML 1 ML 10 ML VIAL SQ SCH ×4 (06:49→12:16)
[2018-05-21 07:09] LABS: Basophils % (A) 0 %; Eosinophils # (A) 0.2 k/uL (0-0.7); Eosinophils % (A) 2 %; HCT 28.1 % (34.0-46.0); HGB 8.9 gm/dL (11.4-16.0); Hypochromasia Slight; Lymphocytes # (A) 1.5 k/uL (1.0-4.8); Lymphocytes % (A) 10 %; MCH 29.3 pg (25.0-35.0); MCHC 31.6 g/dL (31.0-37.0); MCV 92.8 fL (80.0-100.0); Mean Platelet Volume 10.9; Monocytes # (A) 0.4 k/uL (0-1.0); Monocytes % (A) 3 %; Neutrophils # (A) 12.3 k/uL (1.3-7.7); Neutrophils % (A) 85 %; Platelet Count 277 k/uL (150-450); RBC 3.02 m/uL (3.80-5.40); RDW 15.6 % (11.5-15.5); WBC 14.6 k/uL (3.8-10.6)
[2018-05-21 07:26] LABS: Albumin 2.4 g/dL (3.5-5.0); Calcium 8.8 mg/dL (8.4-10.2); Potassium 3.5 mmol/L (3.5-5.1); Total Bilirubin 0.9 mg/dL (0.2-1.3); Total Protein 4.9 g/dL (6.3-8.2)
[2018-05-21] MEDS: HEPARIN SODIUM,PORCINE 5,000 UNIT/ML 1 ML VIAL SQ SCH (08:26)
[2018-05-21] MEDS: DOCUSATE 100 MG CAP PO SCH (08:35)
[2018-05-21] MEDS: MEMANTINE 5 MG TAB PO SCH (08:35)
[2018-05-21] MEDS: ATENOLOL 50 MG TAB PO SCH (08:35)
[2018-05-21] MEDS: buPROPion 75 MG TAB PO SCH (08:35)
[2018-05-21] MEDS: POTASSIUM CHLORIDE ER 10 MEQ TAB.ER.PRT PO SCH (08:35)
[2018-05-21] MEDS: PANTOPRAZOLE 40 MG/10 ML VIAL IVP SCH (08:35)
[2018-05-21] MEDS: ASPIRIN 81 MG PO SCH (08:35)
[2018-05-21] MEDS: SODIUM BICARBONATE TAB 650 MG TAB PO SCH (08:36)
[2018-05-21 08:41] VITALS: TEMP 99.1
--- NOTE | 2018-05-21 09:38 | P.PN ---
Subjective Progress Note Date: 05/21/18 Principal diagnosis: No reported bleeding. Altered mental status. Possible meeting today with family to discuss Comfort Care hospice measures. Hemoglobin 8.9. Objective - Vital Signs Vital signs: Vital Signs Temp 99.1 F 05/21/18 08:00 Pulse 102 H 05/21/18 08:00 Resp 18 05/21/18 08:00 BP 99/62 05/21/18 08:00 Pulse Ox 100 05/21/18 08:52 Intake & Output 05/20/18 05/21/18 05/21/18 18:59 06:59 18:59 Intake Total 575 1050 Output Total 500 1900 Balance 75 -850 Weight 52 kg 57 kg Intake: Intake, IV Titration 575 1050 Amount Piperacillin-Tazobactam 3 50 .375 gm In Dextrose/Water 1 50ml.bag @ 12.5 mls/hr IVPB Q12H [facility] Rx#: [id number] Sodium Chloride 0.45% 1, 525 1050 000 ml @ 75 mls/hr IV . [id number] [facility]AK[facility]I Rx#:[id number] Output: Urine 500 1900 Uretheral (Villa) 700 Other: Voiding Method Indwelling Catheter Indwelling Catheter Indwelling Catheter # Bowel Movements 1 - Exam General appearance: The patient is awake nonverbal. HET: Head is normocephalic and atraumatic. Pupils are equal and reactive. Oropharynx is clear without lesions. Neck: Supple without lymphadenopathy. Trachea midline. Heart: S1 S2. Regular rate and rhythm. Lungs: No crackles or wheezes are heard. Abdomen: Soft, nontender, nondistended with bowel sounds. No peritoneal signs. No palpable organomegaly or masses. Extremities: Normal skin color and turgor. No cyanosis, rash, ulceration, clubbing, or edema. Radial and pedal pulses are 2/4 bilaterally. Neurological: No focal deficits. Strength and sensation are grossly intact. - Labs CBC & Chem 7: 05/21/18 06:41 05/21/18 06:41 Labs: Abnormal Lab Results - Last 24 Hours (Table) 05/20/18 05/20/18 05/20/18 Range/Units 05:30 11:51 16:33 WBC (3.8-10.6) k/uL RBC (3.80-5.40) m/uL Hgb (11.4-16.0) gm/dL Hct (34.0-46.0) % RDW (11.5-15.5) % Neutrophils # (1.3-7.7) k/uL Sodium (137-145) mmol/L Chloride (98-107) mmol/L Carbon Dioxide (22-30) mmol/L BUN (7-17) mg/dL Creatinine (0.52-1.04) mg/dL POC Glucose (mg/dL) 119 H 107 H (75-99) mg/dL Iron 27 L (50-170) ug/dL TIBC 133 L (228-460) ug/dL Total Protein (6.3-8.2) g/dL Albumin (3.5-5.0) g/dL 05/20/18 05/21/18 05/21/18 Range/Units 17:56 06:41 06:41 WBC 14.6 H (3.8-10.6) k/uL RBC 3.02 L (3.80-5.40) m/uL Hgb 8.9 L (11.4-16.0) gm/dL Hct 28.1 L (34.0-46.0) % RDW 15.6 H (11.5-15.5) % Neutrophils # 12.3 H (1.3-7.7) k/uL Sodium 146 H (137-145) mmol/L Chloride 118 H (98-107) mmol/L Carbon Dioxide 16 L (22-30) mmol/L BUN 57 H (7-17) mg/dL Creatinine 4.14 H (0.52-1.04) mg/dL POC Glucose (mg/dL) 107 H (75-99) mg/dL Iron (50-170) ug/dL TIBC (228-460) ug/dL Total Protein 4.9 L (6.3-8.2) g/dL Albumin 2.4 L (3.5-5.0) g/dL Assessment and Plan (1) Anemia Narrative/Plan: 87-year-old female admitted with UTI sepsis metabolic encephalopathy renal failure reported coffee-ground emesis possible peptic ulcer disease possible gastritis possible esophagitis with a component of acute blood loss anemia. Current Visit: Yes Status: Acute Code(s): D64.9 - ANEMIA, UNSPECIFIED SNOMED Code(s): 295796883 (2) Coffee ground emesis Current Visit: Yes Status: Acute Code(s): K92.0 - HEMATEMESIS SNOMED Code( s): 747566392 (3) Altered mental status Narrative/Plan: Failed swallow exam Current Visit: Yes Status: Acute Code(s): R41.82 - ALTERED MENTAL STATUS, UNSPECIFIED SNOMED Code(s): 082517093 (4) Sepsis Current Visit: Yes Status: Acute Code(s): A41.9 - SEPSIS, UNSPECIFIED ORGANISM SNOMED Code(s): 61939565 (5) UTI (urinary tract infection) Current Visit: Yes Status: Acute Code(s): N39.0 - URINARY TRACT INFECTION, SITE NOT SPECIFIED SNOMED Code(s): 65477158 (6) KRISTINA (acute kidney injury) Current Visit: Yes Status: Acute Code(s): N17.9 - ACUTE KIDNEY FAILURE, UNSPECIFIED SNOMED Code(s): 71264144 Plan: 1. Continue supportive measures family has verbalized no feeding tube insertion at this time. Possible meeting today to discuss hospice comfort care measures with family. We'll follow as needed. Call call with questions or concerns. Assessment and plan a care discussed with Dr. Casiano
[2018-05-21 11:52] VITALS: BMI 19.6
[2018-05-21 11:58] VITALS: BP 103/41; PULSE 91
[2018-05-21 11:58] LABS: Glucose,Whole Blood 94 mg/dL (75-99)
[2018-05-21] MEDS: CHOLECALCIFEROL 1,000 UNIT TAB PO SCH (12:15)
[2018-05-21] MEDS: PIPERACILLIN-TAZOBACTAM 3.375 GM in DEXTROSE/WATER 1 50ML.BAG IVPB SCH (12:15)
--- NOTE | 2018-05-21 13:33 | PN ---
PROGRESS NOTE The patient is seen for followup for acute kidney injury and hypernatremia. The patient's serum sodium is improved. She has not been eating much. Renal function is also slightly better. The patient has an indwelling Villa catheter and it appears that family was approached regarding PEG tube and they have decided against it and there is consideration for possible hospice care. PHYSICAL EXAMINATION: On examination, blood pressure is 103/41, heart rate 91 per minute. Patient is afebrile. EXAMINATION OF THE HEART: S1, S2. EXAMINATION OF THE LUNGS: Bilateral breath sounds are heard. Abdomen is soft, nontender. Examination of the lower extremities shows no evidence of edema. ADJUSTMENT EXAMINER exam shows patient moving all 4 extremities. LABS: Labs show sodium 146, potassium 3.5, BUN of 57, serum creatinine 4.14, CO2 is at 16. ASSESSMENT: 1. Acute kidney injury, most likely acute tubular necrosis, currently nonoliguric with indwelling Villa catheter. Renal function continues to improve with IV fluids. 2. Hypernatremia, now improved. Patient is maintained on half-normal saline which I will continue for now. 3. Metabolic acidosis. Patient has not been able to take oral sodium bicarb. I will switch the IV fluids to D5W with 2 amps of sodium bicarb, which will also help with the mildly elevated sodium as compared to yesterday. 4. Generalized debility. 5. Anemia with positive stool for occult blood. I do not believe the patient is a candidate for aggressive intervention. PLAN: Plan is change IV fluids to D5 water with 2 amps of sodium bicarb. Repeat labs in a.m. MMODL / IJN: [id number] /
--- NOTE | 2018-05-21 15:18 | PN ---
PROGRESS NOTE REASON FOR FOLLOWUP: Urinary tract infection. INTERVAL HISTORY: The patient is afebrile. She is more awake and alert today. She is breathing comfortably. Denies having any chest pain or any cough. No abdominal pain or any diarrhea. PHYSICAL EXAM: Blood pressure is 103/41 with pulse of 91, temperature 99.1, she is 99% on room air. General description is an elderly female, lying in bed in no distress. RESPIRATORY SYSTEM: Unlabored breathing, clear to auscultation anteriorly. HEART S1, S2. Regular rate and rhythm. ABDOMEN: Soft, no tenderness. LABS: Hemoglobin 8.8, white count of 14.6, BUN of 57, creatinine 4.14. DIAGNOSTIC IMPRESSION AND PLAN: Patient in the hospital with mental status changes, multifactorial. Patient . Urine culture currently pending. Currently on Zosyn that will be done once the cultures are available. Continue supportive care. MMODL / IJN: [id number] /
--- NOTE | 2018-05-21 16:21 | P.DS ---
Providers Date of admission: 05/15/18 20:41 Expected date of discharge: 05/21/18 Attending physician: Luh Williamson Consults: 05/15/18 20:42 Consult Physician Stat Consulting Provider: Jesus Casiano Consult Reason/Comments: Elevated troponin Do you want consulting provider notified?: Yes Consult Physician Stat Consulting Provider: Vivienne Ramírez Consult Reason/Comments: Acute renal failure Do you want consulting provider notified?: Yes 05/15/18 22:51 Consult Physician Routine Consulting Provider: Cherry Johnson Consult Reason/Comments: sepsis Do you want consulting provider notified?: Yes Primary care physician: Sander Perez Hospital Course: Final Diagnoses: 1. Acute UTI with sepsis, present on admission with change in mental status, acute metabolic encephalopathy secondary to sepsis 2. Acute renal failure, possibly prerenal with acute tubular necrosis 3. Severe hypernatremia with dehydration. 4. Hyperchloremia 5. Possible upper GI bleed with hematemesis 6. Diabetes mellitus type 2 7. History of CVA, TIA 8. Gastroesophageal reflux disease 9. Possible underlying dementia 10. Hypertension 11. Hyperlipidemia 12.NPO,secondary to reduced ability to follow directions, reduced cognition needed for safety. Please refer to speech therapy note for full details. 13. No code, no CPR, no intubation 14. Comfort care Hospital course:This is a 87-year-old female admitted with acute UTI with sepsis , acute metabolic encephalopathy, acute renal failure, severe hyponatremia, dehydration and multiple other medical issues. Maintained on IV fluid hydration with D5W, Zosyn. Creatinine down to 5.79. Sodium, chloride slowly improving, currently down to 150, 117. .Afebrile, WBC improving. Remains lethargic, opens eyes to stimulation. Creatinine currently 5.79. Telemetry sinus rhythm. NPO. Echo reporting preserved LV function, EF 50-55%. 05/19/2018 more alert today. Choking on pills. Speech therapy consulted. Maintained on antibiotics and IV fluid hydration with renal function and electrolytes continuing to improve. 05/20/2018 in fluctuating sensorium, less responsive today, nonverbal. No family at bedside. Evaluated by speech therapy yesterday for swallow evaluation.Made NPO secondary to reduced ability to follow directions, reduced cognition needed for safety. Staff reports family does not want PEG tube placement. Maintain IV fluids and antibiotics. Hemoglobin 8.6. No further coffee ground emesis, no rectal bleeding reported. Evaluated by GI, recommendations noted. 05/21/2018 per discussion with family, PEG tube declined and family wishes to have patient return to [facility] on comfort care. Patient will be discharged to [facility] in a stable condition with poor prognosis. Informational hospice meeting at [facility]. EXAM: VITAL SIGNS: [As above] GENERAL: Sitting up in bed, currently alert, lethargic, confused, minimally verbal CARDIOVASCULAR: S1, S2 muffled. Systolic murmur RESPIRATION: Breath sounds diminished in the bases. Scattered rhonchi, no crackles. ABDOMEN: Soft, nontender . No guarding. no masses palpable.Bowel sounds heard NERVOUS SYSTEM: Unable to evaluate, patient lethargic and confused The impression and plan of care has been dictated as directed. : I performed a history and examination of this patient, discussed the same with the dictator. I agree with the dictator's note ,documented as a scribe. Any additional findings or plans will be noted. Time taken: 35 minutes Plan - Discharge Summary Discharge Rx Participant: No New Discharge Prescriptions: New Acetaminophen Suppository [Tylenol Suppository] 650 mg RECTAL Q6HR PRN supp PRN Reason: Fever And/ Or Pain Continue Mirtazapine [Remeron] 15 mg PO HS Albuterol Nebulized [Ventolin Nebulized] 2.5 mg INHALATION RT-Q6H PRN PRN Reason: Shortness Of Breath Discontinued Aspirin 81 mg PO DAILY Docusate [Colace] 100 mg PO BID Cholecalciferol [Vitamin D3] 1,000 unit PO DAILY@1200 Atorvastatin [Lipitor] 40 mg PO HS Insulin Detemir [Levemir Flexpen] 15 unit SQ HS Gabapentin [Neurontin] 100 mg PO HS buPROPion HCL [Wellbutrin] 75 mg PO DAILY Allopurinol [Zyloprim] 100 mg PO DAILY Sodium Bicarbonate Tab 650 mg PO DAILY Potassium Chloride [Klor-Con 10] 10 meq PO DAILY Memantine HCl [Namenda] 5 mg PO BID Ensure Clear 1 can PO TID-W/MEALS Insulin Lispro [humaLOG Kwikpen] 7 unit SQ TID Atenolol [Tenormin] 12.5 mg PO DAILY Discharge Medication List Mirtazapine [Remeron] 15 mg PO HS 05/15/18 [History] Albuterol Nebulized [Ventolin Nebulized] 2.5 mg INHALATION RT-Q6H PRN 05/16/18 [ History] Acetaminophen Suppository [Tylenol Suppository] 650 mg RECTAL Q6HR PRN supp [Rx] Follow up Appointment(s)/Referral(s): Sander Perez MD [Primary Care Provider] - As Needed Marco Antonio Ortiz DO [STAFF PHYSICIAN] - 1 Week Jesus Casiano MD [STAFF PHYSICIAN] - 06/01/18 3:15 pm Patient Instructions/Handouts: Acute Kidney Injury (DC), Urinary Tract Infection in Women (DC), Sepsis (GEN), Altered Mental Status (GEN) Activity/Diet/Wound Care/Special Instructions: [facility] return on [place] comfort care, informational hospice meeting at [facility] Comfort foods as tolerated with no choking, aspiration precautions 1:1 supervision Activity as tolerated, bed rest turn every two hours IDC insertion 05/17/18, maintain for comfort measures No code status at [facility] barrier cream to left buttock prn
[2018-05-21] MEDS ORDERED: METOPROLOL TARTRATE 25 MG TAB PO SCH (21:00)
--- NOTE | 2018-05-25 12:04 | CDI ---
Last Revision, October 2017 Documentation Clarification Form Date: 05/25/18 From: Caroline Shaw Phone: If you have a question regarding this query, please contact Samantha Olson at [phone] between 8am and 5pm. Admit Date: 05/15/2018 8:41:00 PM Patient Name: Blanche Toribio Visit Number: [id number] Discharge Date: 05/21/18 ATTENTION: The Clinical Documentation Specialists (CDI) and [facility] Coding Staff appreciate your assistance in clarifying documentation. Please respond to the clarification below the line at the bottom and electronically sign. The CDI & [facility] Coding staff will review the response and follow-up if needed. Please note: Queries are made part of the Legal Health Record. If you have any questions, please contact the author of this message via ITS. Dr. Luh Contreras pressure was documented in the nursing documentation under wound assessment on 05/20 and 629 . History/Risk Factors: Patient was admitted with sepsis, UTI, GI bleed and anemia. Patient has a history of diabetes. Location: L. buttock Wound description: 3 cm x 3cm Treatment: barrier cream and turning and repositioning. Elements for accurate and compliant documentation of an ulcer: The location/laterality of the ulcer Etiology (decubitus/pressure, diabetic, PVD) Stage I-IV, Unstageable, Suspected Deep Tissue Injury (To the deepest stage) If the ulcer was present at admission (POA) or occurred after admission In your professional opinion, can you please clarify the diagnosis, location, laterality and whether present on admission (POA): Stage 1 Pressure/Decubitus Ulcer (intact skin, non-blanching redness of local area) Stage 2 Pressure/Decubitus Ulcer (Partial thickness, loss of dermis, pink wound bed) Stage 3 Pressure/Decubitus Ulcer (Full thickness tissue loss) Stage 4 Pressure/Decubitus Ulcer (Full thickness tissue loss with exposed bone , tendon, or muscle. May have slough or eschar present) Unstageable Other condition, please specify Unable to determine Please indicate etiology of pressure ulcer (if known). Unstageable MTDD
== END 2018-05-21 17:00 | DRG 871 ==
LOC: EC 17:55 → 6SEL 20:41 → EEVIPCON 20:41 → 6SEL 21:41
PROVIDERS: ADMIT Hospitalist; ATTEND Hospitalist
DX: A41.9 Sepsis, unspecified organism (principal); G93.41 Metabolic encephalopathy; N17.0 Acute kidney failure with tubular necrosis; D62 Acute posthemorrhagic anemia; E87.0 Hyperosmolality and hypernatremia; E87.2 Acidosis; N39.0 Urinary tract infection, site not specified; K92.2 Gastrointestinal hemorrhage, unspecified; L89.320 Pressure ulcer of left buttock, unstageable; E11.9 Type 2 diabetes mellitus without complications; E78.5 Hyperlipidemia, unspecified; E86.0 Dehydration; E86.1 Hypovolemia; E87.6 Hypokalemia; E87.8 Other disorders of electrolyte and fluid balance, not elsewhere classified; F03.90 Unspecified dementia, unspecified severity, without behavioral disturbance, psychotic disturbance, mood disturbance, and anxiety; I10 Essential (primary) hypertension; K21.9 Gastro-esophageal reflux disease without esophagitis; R32 Unspecified urinary incontinence; R65.20 Severe sepsis without septic shock; F32.9 Major depressive disorder, single episode, unspecified; R77.9 Abnormality of plasma protein, unspecified; I25.10 Atherosclerotic heart disease of native coronary artery without angina pectoris; R33.9 Retention of urine, unspecified; R13.10 Dysphagia, unspecified; Z51.5 Encounter for palliative care; Z66 Do not resuscitate; Z79.4 Long term (current) use of insulin; Z79.82 Long term (current) use of aspirin; Z79.899 Other long term (current) drug therapy; Z86.73 Personal history of transient ischemic attack (TIA), and cerebral infarction without residual deficits; Z90.710 Acquired absence of both cervix and uterus; Z95.1 Presence of aortocoronary bypass graft; Z91.09 Other allergy status, other than to drugs and biological substances
CPT/HCPCS: 36415; 70450; 71046; 76770; 80048; 80053; 81001; 82272; 82550; 82553; 83036; 83540; 83550; 83605; 83735; 84132; 84484; 85025; 85730; 86850; 86900; 86901; 87086; 87324; 93005; 93306; 94760; 96361; 96365; 96366; 96375; 99291